=== PATIENT | female | born 1965 | race Caucasian/White ===

== ENCOUNTER 2023-02-09 11:47 | Outpatient (REF) | payer OTHER, SELFPAY ==
[2023-02-09 13:05] LABS: MANUAL DIFF FLAG NO
[2023-02-09 13:42] LABS: Basophils Absolute Auto 0.1 X10*3/uL (0.0-0.2); Basophils Percent Auto 0.9 % (0-2); Eosinophils Absolute Auto 0.2 X10*3/uL (0.0-0.4); Eosinophils Percent Auto 2.3 % (0-4); Hemoglobin 13.9 g/dl (12.0-16.0); Imm Gran Abs Auto 0.02 X10*3/uL (0.00-0.03); Imm Gran Pct Auto 0.3 % (0.0-0.4); Lymphocytes Absolute Auto 2.4 X10*3/uL (1.2-4.9); Lymphocytes Percent Auto 30.3 % (20-40); Mean Corpuscular HGB Conc 33.1 g/dl (31.0-35.0); Mean Corpuscular Hemoglobin 29.6 pg (27.0-33.0); Mean Corpuscular Volume 89.6 fL (80.0-98.0); Mean Platelet Volume 10.1 fL (9.4-12.3); Monocytes Absolute Auto 0.8 X10*3/uL (0.1-1.2); Monocytes Percent Auto 9.6 % (2-11); Neutrophils Absolute Auto 4.4 x10*3/uL (2.0-8.3); Neutrophils Percent Auto 56.6 % (45-73); Platelet Count 261 X10*3/uL (160-400); Red Blood Count 4.69 X10*6/uL (4.20-5.50); Red Cell Distribution Width 12.9 % (11.0-16.0); White Blood Count 7.8 X10*3/uL (4.8-10.8)
[2023-02-09 13:52] LABS: Appearance Urine Clear; Color Urine Yellow; Glucose Urine UA Negative (Negative); Leukocyte Esterase Urine Negative (Negative); Nitrite Urine Negative (Negative); PH 5.5 (5.0-9.0); Specific Gravity - Urine 1.025 (1.005-1.025); Urine Blood Negative (Negative); Urine Ketones Negative (Negative); Urine Protein Negative (Neg-Trace)
[2023-02-09 13:58] LABS: Bacteria Urine 1+ (None Seen); Hyaline Casts Urine 0-2 /LPF (0-2); RBC Urine 0-2 /HPF (0-2); WBC Urine 0-5 /HPF (0-5)
[2023-02-09 14:52] LABS: Erythrocyte Sedimentation Rate 17 MM/HR (0-20)
[2023-02-09 15:12] LABS: Creatinine Urine 124.09 mg/dL; Protein/Creatinine Ratio, Ur 0.06 (<0.2); Total Protein Urine Random 8 mg/dL (<12)
[2023-02-09 15:28] LABS: Alanine Aminotransferase 14 U/L (0-31); Albumin Level 4.1 g/dL (3.5-5.0); Alkaline Phosphatase 95 U/L (39-117); Anion Gap 14 (12-20); Aspartate Amino Transferase 16 U/L (5-31); Bilirubin Total 0.5 mg/dL (0.0-1.0); Blood Urea Nitrogen 15 mg/dL (9-16); C Reactive Protein 0.59 mg/dL (< or = 0.50); Calcium 9.5 mg/dL (8.4-10.2); Carbon Dioxide 20 mmol/L (22-29); Chloride 108 mmol/L (96-108); Estimated Glomerular Filt Rate > 60; Glucose Random 93 mg/dL (60-115); Potassium 4.2 mmol/L (3.3-5.1); Rheumatoid Factor < 13.0 IU/mL (<15.0); Sodium 138 mmol/L (135-145); Total Protein 7.7 g/dL (6.5-8.0)
[2023-02-10 04:58] LABS: HBS Num1 34.45 mIU/mL (0-7.99); HBc Num1 0.07 S/CO (0.00-0.79); HBsAGNum1 0.24 S/CO (0.00-0.99); Hepatitis A Antibody IgM 0.18 Index (0-0.79); Hepatitis B Core Antibody Nonreactive (Nonreactive); Hepatitis B Surface Antigen Negative (Negative); ~HepC Num1 0.12 S/CO (0.00-0.79); ~Hepatitis A Antibody IgM Nonreactive (Nonreactive); ~Hepatitis B Surface Antibody REACTIVE (Nonreactive); ~Hepatitis C Antibody Nonreactive (Nonreactive)
[2023-02-11 17:29] LABS: TS Negative Control Passed; TS Panel A 0; TS Panel B 0; TS Positive Control Passed; TSpotTB Negative (Negative)
[2023-02-13 13:23] LABS: IgA 373 mg/dL (47-310); IgG 1717 mg/dL (600-1640); IgM 86 mg/dL (50-300)
[2023-02-13 15:47] LABS: Cyclic Citrullinated Peptide <16 UNITS
[2023-02-13 19:28] LABS: Complement C3 159 mg/dL (83-193)
[2023-02-14 14:49] LABS: Immunoglobulin G Subclass 1 730 mg/dL (382-929); Immunoglobulin G Subclass 2 538 mg/dL (241-700); Immunoglobulin G Subclass 3 64 mg/dL (22-178); Immunoglobulin G Subclass 4 74.9 mg/dL (4-86); Immunoglobulin G Total 1564 mg/dL (600-1640)
[2023-02-14 22:28] LABS: Prot Elec - Albumin 4.2 g/dL (3.8-4.8); Prot Elec - Alpha1 0.3 g/dL (0.2-0.3); Prot Elec - Alpha2 0.7 g/dL (0.5-0.9); Prot Elec - Beta 1 0.5 g/dL (0.4-0.6); Prot Elec - Beta 2 0.5 g/dL (0.2-0.5); Prot Elec - Gamma 1.6 g/dL (0.8-1.7); Prot Elec - Total Protein 7.7 g/dL (6.1-8.1)
[2023-02-14 23:38] LABS: PTT (LAC) Screen 37 sec (<=40)
[2023-02-15 02:39] LABS: Beta-2 Glycoprotein IgA <2.0 U/mL (<20.0); Beta-2 Glycoprotein IgG <2.0 U/mL (<20.0); Beta-2 Glycoprotein IgM <2.0 U/mL (<20.0)
[2023-02-15 13:13] LABS: Cardiolipin IgG Ab <2.0 GPL-U/mL; Cardiolipin IgM Ab <2.0 MPL-U/mL
[2023-02-15 15:24] LABS: Anti Nuclear Antibody Pattern Nuclear, Speckled; Anti Nuclear Antibody Screen POSITIVE (NEGATIVE); Anti Nuclear Antibody Titer 1:40 titer
[2023-02-16 08:54] LABS: Anti DNA DS Antibody <1 IU/mL; Antibody to SS-A Antigen <1.0 NEG AI (<1.0 NEG); Antibody to SS-B Antigen <1.0 NEG AI (<1.0 NEG); Myeloperoxidase Antibody 5.9 AI; Proteinase 3 PR3 Antibodies <1.0 AI; SM/Ribonucleoprotein Ab <1.0 NEG AI (<1.0 NEG); Smith Protein <1.0 NEG AI (<1.0 NEG)
--- NOTE | 2023-02-16 16:28 | MHC.HEMONC ---
Pt called regarding scheduled appointments on February and March 15 2023 at 0800 for Rituximab. Pt states she will call her healthcare provider regarding cost of medication prior to receiving medication on scheduled appointment date. States she will call us back if she will not be able to afford Rituximab and will cancel appointment-states if we do not hear from her she will be here for appointment.
[2023-02-18 15:23] LABS: Lysozyme, Serum 6.3 mcg/mL (5.0-11.0)
[2023-02-21 04:53] LABS: Angiotensin Converting Enzyme 18 U/L (9-67)
--- NOTE | 2024-01-11 16:46 | HO.HEMONCSCH ---
Nurse sched pt to receive x1 order for Rituximab on 01/18/24, pt confirmed 8am arrival, consent was already signed w/ KEV Louis documentation was also included w/ fax. Nurse notified chemo pharmacist by email and faxed tx orders to pharmacy, received fax receipt confirmation.
== END 2023-02-09 11:48 | disposition home or self-care (01) ==
LOC: HO.LAB 11:47
PROVIDERS: Visit Provider Student in an Organized Health Care Education/Training Program
DX: Z11.59 Encounter for screening for other viral diseases (principal); I77.6 Arteritis, unspecified; D68.61 Antiphospholipid syndrome; M32.9 Systemic lupus erythematosus, unspecified; D86.9 Sarcoidosis, unspecified; D89.89 Other specified disorders involving the immune mechanism, not elsewhere classified; M25.541 Pain in joints of right hand; M31.30 Wegener's granulomatosis without renal involvement; Z72.89 Other problems related to lifestyle
CPT/HCPCS: 36415; 80053; 81001; 82164; 82595; 82784; 84156; 84165; 85025; 85549; 85597; 85613; 85652; 85730; 86021; 86038; 86039; 86140; 86146; 86147; 86160; 86200; 86225; 86235; 86334; 86431; 86481; 86704; 86706; 86709; 86803; 87340

== ENCOUNTER 2023-05-16 10:18 | Outpatient (AMB) | payer OTHER, SELFPAY ==
--- NOTE | 2023-05-16 10:19 | A.OFFVIS_ITS ---
Intake Vital Signs 05/16/23 10:20 Height 5 ft 6 in Weight 242 lb 8.136 oz BMI 39.1 BP 128/78 Blood Pressure Location Rt brachial Position Sitting Pulse 89 Pulse Source Pulse Oximeter Temp 97.5 F Temp Source Skin Pulse Oximetry (%) 96 Intake Visit Reasons: Vasculitis Intake Note: Pt seen today for follow up. Reports she's had 2 rituxin infusions since February. Infusions tolerated well, states she feels great except her knees. 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 She completed rituximab infusions 1 g x 2 doses in 03/31. She states that she feels well overall except for bilateral knee pain. The pain in her wrists and ankles have resolved. Denies any new rashes. She states that she has had chronic knee pain for many years. She states that she had knee MRIs many years ago which showed multiple lesions including meniscal tears. She received multiple injections over the years which helped initially then stopped helping. Initial history: This is a 57-year-old female with past medical history of vasculitis who presents for evaluation of vasculitis. Patient stated that she started having multiple joint pains as well as itchy skin rashes back in 2008. The skin rash was biopsied and per patient it was inconclusive. She was evaluated by a home appliance installer Dr. Alan and was started on methotrexate without much improvement. Her skin rashes and joint pains got worse she was ultimately evaluated by home appliance installer Dr. [place] in [place]. She had a repeat skin biopsy which was consistent with vasculitis. She also had a saddle nose. She was diagnosed with MPO positive vasculitis and started on rituximab treatment X 2 doses. She had a couple rounds of rituximab and felt great on it. 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 She had been in remission until December of 2022 when she developed petechial rashes on her extremities as well as joint pain and stiffness of her knees and ankles. She was prescribed a prednisone taper starting at 60 mg taper down to 20 mg in 1 week by her PCP with resolution of her symptoms. Patient also states that she has a hole in the roof of her mouth which is not particularly symptomatic. Today patient feels well. She denies any fevers, joint pain or or skin rashes. [facility] Medical History Granulomatosis with polyangiitis Surgical History [place] teeth extracted Family History Father Bladder cancer Diabetes HTN (hypertension) Myocardial infarct Mother Amyloidosis Social History Alcohol intake: current Alcohol intake frequency: holidays/special occasions only Patient Tobacco Use Status: Former Tobacco user Quit Date: January 2023 e-Cigarette/Vaping Use: Never Used Current occupational status: employed Review of Systems [facility] Reports arthralgias Skin/Breast Denies rash Physical Exam Vital Signs: Last Vital Signs Temp 97.5 F 05/16/23 10:20 Pulse 89 05/16/23 10:20 BP 128/78 05/16/23 10:20 Pulse Ox 96 05/16/23 10:20 BMI result Body Mass Index 39.1 Const General: cooperative, healthy appearing and comfortable Nutritional Appearance: obese morbidly obese Orientation/consciousness: patient oriented x3 Limitations: no limitations HEENT Other: Saddle nose deformity a Hole in the roof of her mouth Head: Yes normocephalic and Yes atraumatic Mouth: moist mucous membranes Resp Effort & Inspection: normal respiratory effort and able to speak in complete sentences Skin General skin exam: no rashes or lesions noted Neuro General: patient oriented x3 Extrem Other: No active synovitis Mild bilateral knee warmth and crepitus without swelling or tenderness Results Reviewed Results Reviewed: Reviewed labs from 2013 and 2012 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 (inflammatory arthritis, skin rashes, saddle nose deformity, sinusitis) Received rituximab in 2012 in 2013 which put her in remission then lost to follow-up flare in 2022 inflammatory arthritis and skin rash (RTX 1 g X2 doses 03/31) effective Code(s): I77.6 - Arteritis, unspecified Plan: This is a 57-year-old female with MPO positive GPA. Patient completed rituximab infusions 03/31. She states that she feels better overall. With improvement of joint pains and skin rashes. Her main complaint is bilateral knee pain due to degenerative arthritis. Will continue to monitor patient clinically and assess the need for further infusions. Patient had to pay $ 1200 out of pocket for infusions. She also had to pay $ 400 for blood work. Will try to be as selective as possible when ordering blood work. Follow-up in 4 months. Will check blood work then (2) Bilateral primary osteoarthritis of knee: Code(s): M17.0 - Bilateral primary osteoarthritis of knee Plan: Advised patient to try Tylenol Arthritis and use [id number] Voltaren gel. There has been no acute change in her symptoms. Will hold off on ordering an x- ray Plan I spent 26 minutes reviewing patient's chart, evaluating patient, counseling patient and documenting in the chart Coding Level of Care Code Est Pt Level 4 (47422) Diagnoses Vasculitis I77.6 Bilateral primary osteoarthritis of knee M17.0
[2023-05-16 10:20] VITALS: BP 128/78; PULSE 89; TEMP 36.4; O2SAT 96; BMI 39.1
== END 2023-05-16 11:02 | disposition home or self-care (01) ==
PROVIDERS: PCP Internal Medicine; Visit Provider Student in an Organized Health Care Education/Training Program
DX: I77.6 Arteritis, unspecified (principal); M17.0 Bilateral primary osteoarthritis of knee
CPT/HCPCS: 99214

== ENCOUNTER → 2023-05-16 10:18 | Outpatient (BNVA) | payer OTHER, SELFPAY | PROVIDERS: PCP Internal Medicine; Visit Provider Student in an Organized Health Care Education/Training Program ==

== ENCOUNTER 2023-09-08 08:13 | Outpatient (REF) | payer OTHER, SELFPAY ==
--- NOTE | ~2023-09-08 | XR_ITS ---
EXAMINATION: Bilateral knee series CLINICAL INFORMATION: Primary osteoarthritis of the knee COMPARISON: None. TECHNIQUE: 4 views of each knee FINDINGS: Right knee: There are marginal osteophytes about all compartments and joint space narrowing in the medial compartment. Is mild genu varus Small joint effusion. Surrounding bone and soft tissues unremarkable. Left knee: There are marginal osteophytes about all compartments and joint space narrowing of the medial compartment. There is mild genu varus small joint effusion XR/XR knee LT 4V IMPRESSION: RIGHT KNEE: Moderate osteoarthritis. Joint effusion LEFT KNEE: Moderate osteoarthritis with small joint effusion.
--- NOTE | ~2023-09-08 | XR_ITS ---
EXAMINATION: Bilateral knee series CLINICAL INFORMATION: Primary osteoarthritis of the knee COMPARISON: None. TECHNIQUE: 4 views of each knee FINDINGS: Right knee: There are marginal osteophytes about all compartments and joint space narrowing in the medial compartment. Is mild genu varus Small joint effusion. Surrounding bone and soft tissues unremarkable. Left knee: There are marginal osteophytes about all compartments and joint space narrowing of the medial compartment. There is mild genu varus small joint effusion XR/XR knee RT 4V IMPRESSION: RIGHT KNEE: Moderate osteoarthritis. Joint effusion LEFT KNEE: Moderate osteoarthritis with small joint effusion.
== END 2023-09-08 08:14 | disposition home or self-care (01) ==
LOC: HO.XRAY 08:13
PROVIDERS: PCP Internal Medicine; Visit Provider Student in an Organized Health Care Education/Training Program
DX: I77.6 Arteritis, unspecified (principal); M17.0 Bilateral primary osteoarthritis of knee
CPT/HCPCS: 73564

== ENCOUNTER 2023-09-08 08:13 | Outpatient (AMB) | payer OTHER, SELFPAY ==
[2023-09-08 08:22] VITALS: BP 118/70; PULSE 80; TEMP 35.9; O2SAT 94; BMI 39.0
--- NOTE | 2023-09-08 08:22 | MHC.OFFVIS ---
Intake Vital Signs 09/08/23 08:22 Height 5 ft 6 in Weight 241 lb 10.026 oz BMI 39.0 BP 118/70 Blood Pressure Location Rt brachial Position Sitting Pulse 80 Pulse Source Pulse Oximeter Temp 96.7 F L Temp Source Skin Pulse Oximetry (%) 94 Oxygen Delivery Method Room Air Intake Visit Reasons: GPA Intake Note: Pt last seen 05/16/23, presents today for follow up. Concerned with weight gain in the last 6 months. Drawing Machine Operator Required: No Accompanied by: Self / Same As Patient Allergies No Known Allergies Allergy (Verified 05/16/23 10:23) Medication List - Last Reconciled 09/08/23 by Ebony Handy MD cholecalciferol (vitamin D3) (Vitamin D3) 50 mcg PO DAILY rituximab-pvvr 1,000 mg intravenously at day 1 & day 15 to be repeated every 6 months sumatriptan succinate 50 mg PO ONCE PRN HPI HPI Comments History of Present Illness Details 58-year-old female with MPO positive GPA returns for follow-up. She completed rituximab infusions 1 g x 2 doses in 03/31. She states that 3 weeks ago she had mild left shoulder pain that self-resolved, few days later she had left toe pain self-resolved. Denies any swollen joints. Denies any fevers or skin rashes. She states that she feels well overall except for bilateral knee pain. She states that she has had chronic knee pain for many years. She states that she had knee MRIs many years ago which showed multiple lesions including meniscal tears. She received multiple injections over the years which helped initially then stopped helping. Initial history: This is a 57-year-old female with past medical history of vasculitis who presents for evaluation of vasculitis. Patient stated that she started having multiple joint pains as well as itchy skin rashes back in 2008. The skin rash was biopsied and per patient it was inconclusive. She was evaluated by a production painter Dr. Alan and was started on methotrexate without much improvement. Her skin rashes and joint pains got worse she was ultimately evaluated by production painter Dr. Adams in [place]. She had a repeat skin biopsy which was consistent with vasculitis. She also had a saddle nose. She was diagnosed with MPO positive vasculitis and started on rituximab treatment X 2 doses. She had a couple rounds of rituximab and felt great on it. 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 She had been in remission until December of 2022 when she developed petechial rashes on her extremities as well as joint pain and stiffness of her knees and ankles. She was prescribed a prednisone taper starting at 60 mg taper down to 20 mg in 1 week by her PCP with resolution of her symptoms. Patient also states that she has a hole in the roof of her mouth which is not particularly symptomatic. Today patient feels well. She denies any fevers, joint pain or or skin rashes. [facility] Medical History Granulomatosis with polyangiitis Surgical History [place] teeth extracted Family History Father Bladder cancer Diabetes HTN (hypertension) Myocardial infarct Mother Amyloidosis Social History Alcohol intake: current Alcohol intake frequency: holidays/special occasions only Patient Tobacco Use Status: Former Tobacco user Quit Date: January 2023 e-Cigarette/Vaping Use: Never Used Current occupational status: employed Review of Systems [place] Reports weight gain Musc Reports arthralgias, Denies joint swelling and Reports stiffness Skin/Breast Denies rash Physical Exam Vital Signs: Last Vital Signs Temp 96.7 F L 09/08/23 08:22 Pulse 80 09/08/23 08:22 BP 118/70 09/08/23 08:22 Pulse Ox 94 09/08/23 08:22 Oxygen Delivery Method Room Air 09/08/23 08:22 BMI result Body Mass Index 39.0 Const General: cooperative, healthy appearing and comfortable Nutritional Appearance: obese morbidly obese Orientation/consciousness: patient oriented x3 Limitations: no limitations HEENT Other: Saddle nose deformity a Hole in the roof of her mouth Head: Yes normocephalic and Yes atraumatic Mouth: moist mucous membranes Resp Effort & Inspection: normal respiratory effort and able to speak in complete sentences Skin General skin exam: no rashes or lesions noted Neuro General: patient oriented x3 Extrem Other: No active synovitis Mild bilateral knee warmth and crepitus without swelling or tenderness Results Reviewed Results Reviewed: Reviewed labs from 2013 and 2012 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 Patient completed rituximab infusions 03/31. She states that she feels better overall. With improvement of joint pains and skin rashes. Her main complaint is bilateral knee pain due to degenerative arthritis. Will continue to monitor patient clinically and assess the need for further infusions. Patient had to pay $ 1200 out of pocket for infusions. She also had to pay $ 400 for blood work. Will try to be as selective as possible when ordering blood work. Follow-up in 3 months (2) Bilateral primary osteoarthritis of knee: Code(s): M17.0 - Bilateral primary osteoarthritis of knee Plan: Advised patient to try Tylenol Arthritis and use [id number] Voltaren gel. Will check bilateral knee x-rays. Will call patient with results, can consider a repeat cortisone injection once, if no relief, can consider gel injections Plan I spent 26 minutes reviewing patient's chart, evaluating patient, counseling patient and documenting in the chart Orders: Orders XR knee LT 3V Today M17.0 - Bilateral primary osteoarthritis of knee XR knee RT 3V Today M17.0 - Bilateral primary osteoarthritis of knee XR knee standing BI Today M17.0 - Bilateral primary osteoarthritis of knee Coding Level of Care Code Est Pt Level 4 (90114) Diagnoses Vasculitis I77.6 Bilateral primary osteoarthritis of knee M17.0
== END 2023-09-08 08:42 | disposition home or self-care (01) ==
PROVIDERS: PCP Internal Medicine; Visit Provider Student in an Organized Health Care Education/Training Program
DX: I77.6 Arteritis, unspecified (principal); M17.0 Bilateral primary osteoarthritis of knee
CPT/HCPCS: 99214

== ENCOUNTER 2023-09-18 09:53 | Outpatient (AMB) | payer OTHER, SELFPAY ==
--- NOTE | 2023-09-18 09:55 | A.OFFVIS_ITS ---
Intake Vital Signs 09/18/23 09:58 Height 5 ft 6 in Weight 240 lb 11.916 oz BMI 38.9 BP 116/78 Blood Pressure Location Rt brachial Position Sitting Pulse 87 Pulse Source Pulse Oximeter Intake Visit Reasons: Knee injection Intake Note: Patient presents today for knee injection. Knee x-rays done. Clinical Care Manager Required: No Accompanied by: Self / Same As Patient Allergies No Known Allergies Allergy (Verified 09/18/23 09:59) Medication List - Last Reconciled 09/18/23 by Ebony Handy MD cholecalciferol (vitamin D3) (Vitamin D3) 50 mcg PO DAILY rituximab-pvvr 1,000 mg intravenously at day 1 & day 15 to be repeated every 6 months sumatriptan succinate 50 mg PO ONCE PRN HPI HPI Comments History of Present Illness Details 58-year-old female with MPO positive GPA returns for follow-up. She is here for bilateral knee cortisone injections. Initial history: This is a 57-year-old female with past medical history of vasculitis who presents for evaluation of vasculitis. Patient stated that she started having multiple joint pains as well as itchy skin rashes back in 2008. The skin rash was biopsied and per patient it was inconclusive. She was evaluated by a air operations manager Dr. Alan and was started on methotrexate without much improvement. Her skin rashes and joint pains got worse she was ultimately evaluated by air operations manager Dr. Adams in [place]. She had a repeat skin biopsy which was consistent with vasculitis. She also had a saddle nose. She was diagnosed with MPO positive vasculitis and started on rituximab treatment X 2 doses. She had a couple rounds of rituximab and felt great on it. 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 She had been in remission until December of 2022 when she developed petechial rashes on her extremities as well as joint pain and stiffness of her knees and ankles. She was prescribed a prednisone taper starting at 60 mg taper down to 20 mg in 1 week by her PCP with resolution of her symptoms. Patient also states that she has a hole in the roof of her mouth which is not particularly symptomatic. Today patient feels well. She denies any fevers, joint pain or or skin rashes. [facility] Medical History Granulomatosis with polyangiitis Surgical History [place] teeth extracted Family History Father Bladder cancer Diabetes HTN (hypertension) Myocardial infarct Mother Amyloidosis Social History Alcohol intake: current Alcohol intake frequency: holidays/special occasions only Patient Tobacco Use Status: Former Tobacco user Quit Date: January 2023 e-Cigarette/Vaping Use: Never Used Current occupational status: employed Review of Systems [facility] Reports arthralgias and Reports stiffness Physical Exam Vital Signs: Last Vital Signs Pulse 87 09/18/23 09:58 BP 116/78 09/18/23 09:58 BMI result Body Mass Index 38.9 Const General: cooperative, healthy appearing and comfortable Nutritional Appearance: obese morbidly obese Orientation/consciousness: patient oriented x3 Limitations: no limitations HEENT Other: Saddle nose deformity a Hole in the roof of her mouth Head: Yes normocephalic and Yes atraumatic Resp Effort & Inspection: normal respiratory effort and able to speak in complete sentences Neuro General: patient oriented x3 Extrem Other: No active synovitis Mild bilateral knee warmth and crepitus without swelling or tenderness Office Procedures Joint Injection/Drain Joint Injection/Drain Primary Site: right knee Secondary Site: left knee Prep: site was prepped using sterile technique and ethochloride spray was applied Injected: 40 mg of, Kenalog and other (2 mL of 1% lidocaine) Approach Used: medial parapatellar Procedure: The patient tolerated the procedure well Coding Details: With the patient's consent the right knee was prepped with ChloraPrep and alcohol. The skin was anesthetized with 2 cc of 1% lidocaine. The knee was then injected with 40 mg of triamcinolone and 1 cc of I % lidocaine. The patient tolerated the procedure with no immediate adverse effects. With the patient's consent the left knee was prepped with ChloraPrep and alcohol. The skin was anesthetized with 2 cc of 1% lidocaine. The knee was then injected with 40 mg of triamcinolone and 1 cc of I % lidocaine. The patient tolerated the procedure with no immediate adverse effects. 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 She tried using Tylenol Arthritis and Voltaren gel without relief. Ten years ago patient received steroid and gel injections without significant relief. We will attempt another steroid injection trial. With patient's consent, both knees were injected with Kenalog today. If helpful they can be repeated every 3-4 months, if not helpful, gel injections to be considered Plan I spent 16 minutes reviewing patient's chart, evaluating patient, counseling patient and documenting in the chart Orders: Orders AMB Joint Injection/Aspiration Today M17.0 - Bilateral primary osteoarthritis of knee Coding Level of Care Code Est Pt Level 3 (63440) Diagnoses Bilateral primary osteoarthritis of knee M17.0 CPT Codes Coding - 91898 Large joint: 05360 - Large joint ([id number])
[2023-09-18 09:58] VITALS: BP 116/78; PULSE 87; BMI 38.9
== END 2023-09-18 10:24 | disposition home or self-care (01) ==
PROVIDERS: PCP Internal Medicine; Visit Provider Student in an Organized Health Care Education/Training Program
DX: M17.0 Bilateral primary osteoarthritis of knee (principal)
CPT/HCPCS: 20610; 99213

== ENCOUNTER → 2023-09-18 09:53 | Outpatient (BNVA) | payer OTHER, SELFPAY | PROVIDERS: PCP Internal Medicine; Visit Provider Student in an Organized Health Care Education/Training Program | DX: M17.0 Bilateral primary osteoarthritis of knee (principal) | CPT/HCPCS: 20610; J3301 ==

== ENCOUNTER 2023-12-25 07:49 | Outpatient (REF) | payer OTHER, SELFPAY ==
[2023-12-27 20:49] LABS: Prot Elec - Albumin 3.9 g/dL (3.8-4.8); Prot Elec - Alpha1 0.3 g/dL (0.2-0.3); Prot Elec - Alpha2 0.7 g/dL (0.5-0.9); Prot Elec - Beta 1 0.5 g/dL (0.4-0.6); Prot Elec - Beta 2 0.6 g/dL (0.2-0.5); Prot Elec - Gamma 1.4 g/dL (0.8-1.7); Prot Elec - Total Protein 7.4 g/dL (6.1-8.1)
[2023-12-28 09:14] LABS: IgA 355 mg/dL (47-310); IgG 1572 mg/dL (600-1640); IgM 66 mg/dL (50-300)
== END 2023-12-25 07:50 | disposition home or self-care (01) ==
LOC: HO.LAB 07:49
PROVIDERS: Visit Provider Student in an Organized Health Care Education/Training Program
DX: I77.6 Arteritis, unspecified (principal)
CPT/HCPCS: 36415; 82784; 84165; 86334

== ENCOUNTER 2023-12-27 09:57 | Outpatient (AMB) | payer OTHER, SELFPAY ==
--- NOTE | 2023-12-27 10:07 | MHC.OFFVIS ---
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 Reports robin knee pain, states last cortisone injection lasted until monday. 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 Patient called our clinic last month due to a dry cough, some sinus pain and generalized, not feeling well, she contacted our clinic and blood work was ordered, she was evaluated by her PCP and was told that she likely has a viral infection, she was prescribed a cough suppressant with resolution of her symptoms, last Monday she started feeling that the steroid injections have not working well. She has been having bilateral knee pain, left lower back pain and left foot pain. She does not believe she has any swollen joints. No rashes no fevers no sinus congestion. She has been snoring a little bit more loud they. She has been a little restless Initial history: This is a 57-year-old female with past medical history of vasculitis who presents for evaluation of vasculitis. Patient stated that she started having multiple joint pains as well as itchy skin rashes back in 2008. The skin rash was biopsied and per patient it was inconclusive. She was evaluated by a diabetic educator Dr. Alan and was started on methotrexate without much improvement. Her skin rashes and joint pains got worse she was ultimately evaluated by diabetic educator Dr. Adams in [place]. She had a repeat skin biopsy which was consistent with vasculitis. She also had a saddle nose. She was diagnosed with MPO positive vasculitis and started on rituximab treatment X 2 doses. She had a couple rounds of rituximab and felt great on it. 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 She had been in remission until December of 2022 when she developed petechial rashes on her extremities as well as joint pain and stiffness of her knees and ankles. She was prescribed a prednisone taper starting at 60 mg taper down to 20 mg in 1 week by her PCP with resolution of her symptoms. Patient also states that she has a hole in the roof of her mouth which is not particularly symptomatic. Today patient feels well. She denies any fevers, joint pain or or skin rashes. [facility] Medical History Respiratory symptoms History of vasculitis Granulomatosis with polyangiitis Surgical History [place] teeth extracted Family History Father Bladder cancer Diabetes HTN (hypertension) Myocardial infarct Mother Amyloidosis Social History Alcohol intake: current Alcohol intake frequency: holidays/special occasions only Patient Tobacco Use Status: Former Tobacco user Quit Date: January 2023 e-Cigarette/Vaping Use: Never Used Current occupational status: employed Review of Systems [facility] Reports arthralgias and Reports stiffness Skin/Breast Denies rash Psych Details: Restless Physical Exam Vital Signs: Last Vital Signs Temp 98.2 F 12/27/23 10:08 Pulse 56 12/27/23 10:08 BP 100/60 12/27/23 10:08 Pulse Ox 93 12/27/23 10:08 Oxygen Delivery Method Room Air 12/27/23 10:08 BMI result Body Mass Index 38.9 Const General: cooperative, healthy appearing and comfortable Nutritional Appearance: obese morbidly obese Orientation/consciousness: patient oriented x3 Limitations: no limitations HEENT Other: Saddle nose deformity a Hole in the roof of her mouth No sinus tenderness No oral ulcers Head: Yes normocephalic and Yes atraumatic Resp Effort & Inspection: normal respiratory effort and able to speak in complete sentences Auscultation: clear to auscultation bilaterally Cardio Rate: regular rate Rhythm: regular rhythm Skin General skin exam: no rashes or lesions noted Neuro General: patient oriented x3 Extrem Other: No active synovitis Mild bilateral knee warmth and crepitus without swelling or tenderness Results Reviewed Results Reviewed: Reviewed labs from 2013 and 2012 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 Patient completed rituximab infusions 03/31. Last month patient was having cough, eye pain, she was evaluated by her PCP and prescribed a cough suppressant with resolution of her symptoms. She has been having more joint pains especially of her knees for a few days. He feels that he steroid injection effect has worn out. Will check labs to evaluate disease activity. Will call patient with results (2) Bilateral primary osteoarthritis of knee: Code(s): M17.0 - Bilateral primary osteoarthritis of knee Plan: Cortisone injections done 09/2023 were quite effective for about 3 months. Patient to come back to clinic in 2-3 weeks for repeat injections Plan I spent 26 minutes reviewing patient's chart, evaluating patient, ordering diagnostic workup, counseling patient and documenting in the chart Orders: Orders ANCA Vasculitides Today I77.6 - Arteritis, unspecified, R09.89 - Other specified symptoms and signs involving the circulatory and respiratory systems, Z86.79 - Personal history of other diseases of the circulatory system Complete Blood Count Auto Diff Today I77.6 - Arteritis, unspecified, R09.89 - Other specified symptoms and signs involving the circulatory and respiratory systems, Z86.79 - Personal history of other diseases of the circulatory system Proteinase 3 PR3 Antibodies Today I77.6 - Arteritis, unspecified, R09.89 - Other specified symptoms and signs involving the circulatory and respiratory systems, Z86.79 - Personal history of other diseases of the circulatory system C Reactive Protein Today I77.6 - Arteritis, unspecified, R09.89 - Other specified symptoms and signs involving the circulatory and respiratory systems, Z86.79 - Personal history of other diseases of the circulatory system Comprehensive Met. Panel Today I77.6 - Arteritis, unspecified, R09.89 - Other specified symptoms and signs involving the circulatory and respiratory systems, Z86.79 - Personal history of other diseases of the circulatory system Erythrocyte Sedimentation Rate Today I77.6 - Arteritis, unspecified, R09.89 - Other specified symptoms and signs involving the circulatory and respiratory systems, Z86.79 - Personal history of other diseases of the circulatory system Myeloperoxidase Antibody Today I77.6 - Arteritis, unspecified, R09.89 - Other specified symptoms and signs involving the circulatory and respiratory systems, Z86.79 - Personal history of other diseases of the circulatory system Coding Level of Care Code Est Pt Level 4 (64741) Diagnoses Vasculitis I77.6 Bilateral primary osteoarthritis of knee M17.0
[2023-12-27 10:08] VITALS: BP 100/60; PULSE 56; TEMP 36.8; O2SAT 93; BMI 38.9
== END 2023-12-27 10:43 | disposition home or self-care (01) ==
PROVIDERS: PCP Internal Medicine; Visit Provider Student in an Organized Health Care Education/Training Program
DX: I77.6 Arteritis, unspecified (principal); M17.0 Bilateral primary osteoarthritis of knee
CPT/HCPCS: 99214

== ENCOUNTER → 2023-12-27 09:57 | Outpatient (BNVA) | payer OTHER, SELFPAY | PROVIDERS: PCP Internal Medicine; Visit Provider Student in an Organized Health Care Education/Training Program ==

== ENCOUNTER 2023-12-27 10:47 | Outpatient (REF) | payer OTHER, SELFPAY ==
[2023-12-27 13:31] LABS: MANUAL DIFF FLAG NO
[2023-12-27 13:39] LABS: Basophils Absolute Auto 0.1 X10*3/uL (0.0-0.2); Basophils Percent Auto 0.9 % (0-2); Eosinophils Absolute Auto 0.1 X10*3/uL (0.0-0.4); Eosinophils Percent Auto 1.8 % (0-4); Hematocrit 41.3 % (37.0-47.0); Hemoglobin 13.7 g/dl (12.0-16.0); Imm Gran Abs Auto 0.03 X10*3/uL (0.00-0.03); Imm Gran Pct Auto 0.4 % (0.0-0.4); Lymphocytes Absolute Auto 1.8 X10*3/uL (1.2-4.9); Lymphocytes Percent Auto 23.8 % (20-40); Mean Corpuscular HGB Conc 33.2 g/dl (31.0-35.0); Mean Corpuscular Hemoglobin 30.9 pg (27.0-33.0); Mean Platelet Volume 10.4 fL (9.4-12.3); Monocytes Absolute Auto 0.7 X10*3/uL (0.1-1.2); Monocytes Percent Auto 9.5 % (2-11); Neutrophils Absolute Auto 4.8 x10*3/uL (2.0-8.3); Neutrophils Percent Auto 63.6 % (45-73); Platelet Count 270 X10*3/uL (160-400); Red Blood Count 4.44 X10*6/uL (4.20-5.50); Red Cell Distribution Width 13.2 % (11.0-16.0); White Blood Count 7.6 X10*3/uL (4.8-10.8)
[2023-12-27 13:52] LABS: Alanine Aminotransferase 36 U/L (0-31); Albumin Level 4.1 g/dL (3.5-5.0); Alkaline Phosphatase 83 U/L (39-117); Anion Gap 10 (12-20); Aspartate Amino Transferase 34 U/L (5-31); Bilirubin Total 0.4 mg/dL (0.0-1.0); Blood Urea Nitrogen 12 mg/dL (9-16); C Reactive Protein 0.96 mg/dL (< or = 0.50); Calcium 9.7 mg/dL (8.4-10.2); Carbon Dioxide 27 mmol/L (22-29); Chloride 106 mmol/L (96-108); Estimated Glomerular Filt Rate > 60; Glucose Random 97 mg/dL (60-115); Sodium 139 mmol/L (135-145); Total Protein 8.1 g/dL (6.5-8.0)
[2023-12-27 14:22] LABS: Erythrocyte Sedimentation Rate 25 MM/HR (0-20)
[2024-01-08 09:53] LABS: Myeloperoxidase Antibody 5.7 AI; Proteinase 3 PR3 Antibodies <1.0 AI
== END 2023-12-27 10:48 | disposition home or self-care (01) ==
LOC: HO.10HDL 10:47
PROVIDERS: Visit Provider Student in an Organized Health Care Education/Training Program
DX: I77.6 Arteritis, unspecified (principal); R09.89 Other specified symptoms and signs involving the circulatory and respiratory systems; Z86.79 Personal history of other diseases of the circulatory system
CPT/HCPCS: 36415; 80053; 85025; 85652; 86021; 86140

== ENCOUNTER 2024-01-10 11:34 | Outpatient (AMB) | payer OTHER, SELFPAY ==
[2024-01-10 11:41] VITALS: BP 108/60; PULSE 94; O2SAT 95; BMI 39.3
--- NOTE | 2024-01-10 11:41 | MHC.OFFVIS ---
Intake Vital Signs 01/10/24 11:41 Height 5 ft 6 in Weight 243 lb 9.773 oz BMI 39.3 BP 108/60 Blood Pressure Location Rt brachial Position Sitting Pulse 94 Pulse Source Pulse Oximeter Pulse Oximetry (%) 95 Oxygen Delivery Method Room Air Intake Visit Reasons: vasculitis/inj Intake Note: Patient last seen 12/27/23 presents today for follow up and bl knee injections. She also reports rash and is hoping to get infusion soon. 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 She is here for bilateral knee cortisone injection for her knee osteoarthritis. She stated that she noticed a rash that popped up on her left pope yesterday. It is not itchy, no other rashes noticed. Denies any chest pain, fevers, shortness of breath. Continues to feel a little restless Initial history: This is a 57-year-old female with past medical history of vasculitis who presents for evaluation of vasculitis. Patient stated that she started having multiple joint pains as well as itchy skin rashes back in 2008. The skin rash was biopsied and per patient it was inconclusive. She was evaluated by a colored liquid plastic applier Dr. Alan and was started on methotrexate without much improvement. Her skin rashes and joint pains got worse she was ultimately evaluated by colored liquid plastic applier Dr. Adams in [place]. She had a repeat skin biopsy which was consistent with vasculitis. She also had a saddle nose. She was diagnosed with MPO positive vasculitis and started on rituximab treatment X 2 doses. She had a couple rounds of rituximab and felt great on it. 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 She had been in remission until December of 2022 when she developed petechial rashes on her extremities as well as joint pain and stiffness of her knees and ankles. She was prescribed a prednisone taper starting at 60 mg taper down to 20 mg in 1 week by her PCP with resolution of her symptoms. Patient also states that she has a hole in the roof of her mouth which is not particularly symptomatic. Today patient feels well. She denies any fevers, joint pain or or skin rashes. [facility] Medical History Respiratory symptoms History of vasculitis Granulomatosis with polyangiitis Surgical History [place] teeth extracted Family History Father Bladder cancer Diabetes HTN (hypertension) Myocardial infarct Mother Amyloidosis Social History Alcohol intake: current Alcohol intake frequency: holidays/special occasions only Patient Tobacco Use Status: Former Tobacco user Quit Date: January 2023 e-Cigarette/Vaping Use: Never Used Current occupational status: employed Review of Systems [employer] Reports arthralgias and Reports stiffness Skin/Breast Reports rash Psych Details: Restless Physical Exam Vital Signs: Last Vital Signs Pulse 94 01/10/24 11:41 BP 108/60 01/10/24 11:41 Pulse Ox 95 01/10/24 11:41 Oxygen Delivery Method Room Air 01/10/24 11:41 BMI result Body Mass Index 39.3 Const General: cooperative, healthy appearing and comfortable Nutritional Appearance: obese morbidly obese Orientation/consciousness: patient oriented x3 Limitations: no limitations HEENT Other: Saddle nose deformity a Hole in the roof of her mouth No sinus tenderness No oral ulcers Head: Yes normocephalic and Yes atraumatic Resp Effort & Inspection: normal respiratory effort and able to speak in complete sentences Skin Other: Neuro General: patient oriented x3 Extrem Other: No active synovitis Mild bilateral knee warmth and crepitus without swelling or tenderness Office Procedures Joint Injection/Drain Joint Injection/Drain Primary Site: right knee Secondary Site: left knee Prep: site was prepped using sterile technique and ethochloride spray was applied Injected: 40 mg of, Kenalog and other (2 mL of 1% lidocaine) Approach Used: medial parapatellar Procedure: The patient tolerated the procedure well Coding Details: With the patient's consent the right knee was prepped with ChloraPrep and alcohol. The skin was anesthetized with 2 cc of 1% lidocaine. The knee was then injected with 40 mg of triamcinolone and 2 cc of I % lidocaine. The patient tolerated the procedure with no immediate adverse effects. With the patient's consent the left knee was prepped with ChloraPrep and alcohol. The skin was anesthetized with 2 cc of 1% lidocaine. The knee was then injected with 40 mg of triamcinolone and 2 cc of I % lidocaine. The patient tolerated the procedure with no immediate adverse effects. 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 Patient completed rituximab infusions 03/31. Over the last month patient has been having symptoms suggestive of a recurrence including increased restlessness, rashes, worsening knee pain. Labs showed elevated inflammatory markers. Patient needs another rituximab infusion. Rituximab was authorized, patient will be scheduled, will plan to give 1 g rituximab. Follow-up in 2 months (2) Bilateral primary osteoarthritis of knee: Code(s): M17.0 - Bilateral primary osteoarthritis of knee Plan: Cortisone injections done 09/2023 were quite effective for about 3 months. Knee pain recurring. With patient's consent, both knees were injected with Kenalog today Plan I spent 26 minutes reviewing patient's chart, evaluating patient, counseling patient and documenting in the chart Orders: Orders AMB Joint Injection/Aspiration Today M17.0 - Bilateral primary osteoarthritis of knee Coding Level of Care Code Est Pt Level 4 (37553) Diagnoses Vasculitis I77.6 Bilateral primary osteoarthritis of knee M17.0 CPT Codes Coding - Large joint: 87492 - Large joint ([id number])
== END 2024-01-10 12:21 | disposition home or self-care (01) ==
PROVIDERS: PCP Internal Medicine; Visit Provider Student in an Organized Health Care Education/Training Program
DX: I77.6 Arteritis, unspecified (principal); M17.0 Bilateral primary osteoarthritis of knee
CPT/HCPCS: 20610; 99213

== ENCOUNTER → 2024-01-10 11:34 | Outpatient (BNVA) | payer OTHER, SELFPAY | PROVIDERS: PCP Internal Medicine; Visit Provider Student in an Organized Health Care Education/Training Program | DX: I77.6 Arteritis, unspecified (principal); M17.0 Bilateral primary osteoarthritis of knee | CPT/HCPCS: 20610; J3301 ==

== ENCOUNTER 2024-03-12 10:15 | Outpatient (AMB) | payer OTHER, SELFPAY ==
--- NOTE | 2024-03-12 10:20 | MHC.OFFVIS ---
Vital Signs 03/12/24 10:25 Height 5 ft 6 in Weight 242 lb 1.081 oz BMI 39.1 BP 128/76 Blood Pressure Location Rt brachial Position Sitting Intake Visit Reasons: vasculitis Intake Note: Pt reports bl knee pain/throbbing since Monday. 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 She states that she has been doing reasonably well overall. Symptoms of restlessness have resolved after rituximab infusion. Her knees were doing well after the injection until about days ago when she started noticing swelling behind her right knee as well as bilateral lower extremity swelling more noticeable on the right. He states that in the past she was told that she has fluid buildup in her legs and she needs to use compression stockings but she could not tolerate them Initial history: This is a 57-year-old female with past medical history of vasculitis who presents for evaluation of vasculitis. Patient stated that she started having multiple joint pains as well as itchy skin rashes back in 2008. The skin rash was biopsied and per patient it was inconclusive. She was evaluated by a western philosophy professor Dr. Alan and was started on methotrexate without much improvement. Her skin rashes and joint pains got worse she was ultimately evaluated by western philosophy professor Dr. Adams in [place]. She had a repeat skin biopsy which was consistent with vasculitis. She also had a saddle nose. She was diagnosed with MPO positive vasculitis and started on rituximab treatment X 2 doses. She had a couple rounds of rituximab and felt great on it. 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 She had been in remission until December of 2022 when she developed petechial rashes on her extremities as well as joint pain and stiffness of her knees and ankles. She was prescribed a prednisone taper starting at 60 mg taper down to 20 mg in 1 week by her PCP with resolution of her symptoms. Patient also states that she has a hole in the roof of her mouth which is not particularly symptomatic. Today patient feels well. She denies any fevers, joint pain or or skin rashes. [facility] Medical History Respiratory symptoms Surgical History [place] teeth extracted Family History Father Bladder cancer Diabetes HTN (hypertension) Myocardial infarct Mother Amyloidosis Social History Alcohol intake: current Alcohol intake frequency: holidays/special occasions only Patient Tobacco Use Status: Former Tobacco user e-Cigarette/Vaping Use: Never Used Current occupational status: employed Review of Systems ENT Denies sinus pain, Denies sinus pressure and Denies sore throat Card Denies dyspnea on exertion Resp Denies cough and Denies dyspnea on exertion Musc Reports arthralgias and Reports joint swelling Physical Exam Vital Signs: Last Vital Signs BP 128/76 03/12/24 10:25 BMI result Body Mass Index 39.1 Const General: cooperative, healthy appearing and comfortable Nutritional Appearance: obese morbidly obese Orientation/consciousness: patient oriented x3 Limitations: no limitations HEENT Other: Saddle nose deformity a Hole in the roof of her mouth No sinus tenderness No oral ulcers Head: Yes normocephalic and Yes atraumatic Resp Effort & Inspection: normal respiratory effort and able to speak in complete sentences Neuro General: patient oriented x3 Extrem Other: Right knee warmth and pain with flexion-extension Bilateral lower limb pitting edema but more noticeable on the right Negative Homans sign bilaterally Results Reviewed Results Reviewed: Reviewed labs from 2013 and 2012 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 She completed rituximab infusion 2 months ago, infusion was uneventful. There are no symptoms suggestive of vasculitis today. However given recurrence I think patient will need maintenance dose. Plan to repeat rituximab maintenance dose q.6 months Labs before next visit in 3 months. We will arrange for rituximab infusion then (2) Bilateral primary osteoarthritis of knee: Code(s): M17.0 - Bilateral primary osteoarthritis of knee Category: Medical Plan: Cortisone injections done 09/2023 were quite effective for about 3 months. Both knees injected again 01/2023 effective (3) Right leg swelling: Code(s): M79.89 - Other specified soft tissue disorders Category: Medical Plan: Likely Villar cyst however would like to rule out DVT. Will order bilateral lower extremity venous duplex Plan I spent 26 minutes reviewing patient's chart, evaluating patient, ordering diagnostic workup, counseling patient and documenting in the chart Orders: Orders US venous duplex LE BI Today M79.89 - Other specified soft tissue disorders Complete Blood Count Auto Diff 3 Months I77.6 - Arteritis, unspecified Comprehensive Met. Panel 3 Months I77.6 - Arteritis, unspecified C Reactive Protein 3 Months I77.6 - Arteritis, unspecified Erythrocyte Sedimentation Rate 3 Months I77.6 - Arteritis, unspecified Coding Level of Care Code Est Pt Level 4 (10577) Diagnoses Vasculitis I77.6 Bilateral primary osteoarthritis of knee M17.0 Right leg swelling M79.89
[2024-03-12 10:25] VITALS: BP 128/76; BMI 39.1
== END 2024-03-12 10:46 | disposition home or self-care (01) ==
PROVIDERS: PCP Internal Medicine; Referring Provider Internal Medicine; Visit Provider Student in an Organized Health Care Education/Training Program
DX: I77.6 Arteritis, unspecified (principal); M17.0 Bilateral primary osteoarthritis of knee; M79.89 Other specified soft tissue disorders
CPT/HCPCS: 99214

== ENCOUNTER 2024-03-12 10:15 | Outpatient (REF) | payer OTHER, SELFPAY ==
--- NOTE | ~2024-03-12 | US_ITS ---
EXAMINATION: US VENOUS ULTRASOUND WITH DOPPLER LOWER EXTREMITY, BILATERAL CLINICAL INFORMATION: Right lower extremity swelling Vasculitis. COMPARISON: None available. TECHNIQUE: Ultrasound of the deep veins is performed from the hip to the calf with compression sonography and color and pulse Doppler assessment. Spectral analysis with color-flow imaging is performed. FINDINGS: RIGHT: There is normal venous compression and respiratory variation and augmented flow. The visualized common femoral vein, superficial femoral vein, profunda femoral vein, popliteal vein, and the posterior tibial and peroneal veins shows no evidence of deep venous thrombosis. Right calf edema is seen. LEFT: There is normal venous compression and respiratory variation and augmented flow. The visualized common femoral vein, superficial femoral vein, profunda femoral vein, popliteal vein, and the posterior tibial and peroneal veins shows no evidence of deep venous thrombosis. Left calf edema is seen. US/US venous duplex LE BI IMPRESSION: No DVT demonstrated in the right or left lower extremity. Bilateral calf edema.
--- NOTE | ~2024-03-12 | XR_ITS ---
EXAMINATION: XR KNEE AP STANDING CLINICAL INFORMATION: Bilateral primary osteoarthritis of knee COMPARISON: Right knee 09/08/2023 Left knee 09/08/2023 TECHNIQUE: AP bilateral standing view of the knees was obtained. FINDINGS: Right knee: There is marked joint space narrowing of the medial joint compartment. Marginal osteophytes involve the medial and lateral joint compartment. There is moderate genu varus. Left knee: There is marked narrowing of the medial joint compartment with marginal osteophytes involving the medial and lateral joint compartments. There is moderate degenerative varus. XR/XR knee standing BI IMPRESSION: Bilateral marked osteoarthritis involving the medial joint compartments.
== END 2024-03-12 10:16 | disposition home or self-care (01) ==
LOC: HO.US 10:15
PROVIDERS: PCP Internal Medicine; Visit Provider Student in an Organized Health Care Education/Training Program
DX: M17.0 Bilateral primary osteoarthritis of knee (principal); R60.0 Localized edema
CPT/HCPCS: 73565; 93970

== ENCOUNTER 2024-06-03 08:06 | Outpatient (REF) | payer OTHER, SELFPAY ==
[2024-06-03 10:31] LABS: MANUAL DIFF FLAG NO
[2024-06-03 10:34] LABS: Basophils Absolute Auto 0.1 X10*3/uL (0.0-0.2); Basophils Percent Auto 1.4 % (0-2); Eosinophils Absolute Auto 0.2 X10*3/uL (0.0-0.4); Eosinophils Percent Auto 3.7 % (0-4); Hematocrit 40.2 % (37.0-47.0); Hemoglobin 13.4 g/dl (12.0-16.0); Imm Gran Abs Auto 0.01 X10*3/uL (0.00-0.03); Imm Gran Pct Auto 0.2 % (0.0-0.4); Lymphocytes Absolute Auto 1.7 X10*3/uL (1.2-4.9); Lymphocytes Percent Auto 29.3 % (20-40); Mean Corpuscular HGB Conc 33.3 g/dl (31.0-35.0); Mean Corpuscular Hemoglobin 31.2 pg (27.0-33.0); Mean Corpuscular Volume 93.5 fL (80.0-98.0); Mean Platelet Volume 10.6 fL (9.4-12.3); Monocytes Absolute Auto 0.6 X10*3/uL (0.1-1.2); Monocytes Percent Auto 10.7 % (2-11); Neutrophils Absolute Auto 3.2 x10*3/uL (2.0-8.3); Neutrophils Percent Auto 54.7 % (45-73); Platelet Count 251 X10*3/uL (160-400); Red Cell Distribution Width 12.8 % (11.0-16.0); White Blood Count 5.9 X10*3/uL (4.8-10.8)
[2024-06-03 11:06] LABS: Alanine Aminotransferase 16 U/L (0-31); Albumin Level 3.9 g/dL (3.5-5.0); Alkaline Phosphatase 82 U/L (39-117); Anion Gap 12 (12-20); Aspartate Amino Transferase 16 U/L (5-31); Bilirubin Total 0.4 mg/dL (0.0-1.0); Blood Urea Nitrogen 11 mg/dL (9-16); C Reactive Protein 0.65 mg/dL (< or = 0.50); Carbon Dioxide 24 mmol/L (22-29); Chloride 108 mmol/L (96-108); Estimated Glomerular Filt Rate > 60; Glucose Random 108 mg/dL (60-115); Sodium 140 mmol/L (135-145); Total Protein 7.2 g/dL (6.5-8.0)
[2024-06-03 11:07] LABS: Erythrocyte Sedimentation Rate 13 MM/HR (0-20)
== END 2024-06-03 08:07 | disposition home or self-care (01) ==
LOC: HO.10HDL 08:06
PROVIDERS: Visit Provider Student in an Organized Health Care Education/Training Program
DX: I77.6 Arteritis, unspecified (principal)
CPT/HCPCS: 36415; 80053; 85025; 85652; 86140

== ENCOUNTER 2024-06-19 10:34 | Outpatient (AMB) | payer OTHER, SELFPAY ==
[2024-06-19 10:35] VITALS: BP 130/80; PULSE 81; O2SAT 99; BMI 39.6
--- NOTE | 2024-06-19 10:35 | MHC.OFFVIS ---
Vital Signs 06/19/24 10:35 Height 5 ft 6 in Weight 245 lb 9.519 oz BMI 39.6 BP 130/80 Blood Pressure Location Lt brachial Position Sitting Pulse 81 Pulse Source Pulse Oximeter Pulse Oximetry (%) 99 Oxygen Delivery Method Room Air Intake Visit Reasons: vasculitis Intake Note: Patient presents today for follow up on vasculitis today, with labs review. 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 She states that she has been doing well overall. No sinonasal symptoms. No rashes. No fevers. Her main complaint is bilateral knee pain, worse on the right. The last knee injection was 01/2024. She feels that the injection lasts 2-3 months. Initial history: This is a 57-year-old female with past medical history of vasculitis who presents for evaluation of vasculitis. Patient stated that she started having multiple joint pains as well as itchy skin rashes back in 2008. The skin rash was biopsied and per patient it was inconclusive. She was evaluated by a windows migration technician Dr. Alan and was started on methotrexate without much improvement. Her skin rashes and joint pains got worse she was ultimately evaluated by windows migration technician Dr. Adams in [place]. She had a repeat skin biopsy which was consistent with vasculitis. She also had a saddle nose. She was diagnosed with MPO positive vasculitis and started on rituximab treatment X 2 doses. She had a couple rounds of rituximab and felt great on it. 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 She had been in remission until December of 2022 when she developed petechial rashes on her extremities as well as joint pain and stiffness of her knees and ankles. She was prescribed a prednisone taper starting at 60 mg taper down to 20 mg in 1 week by her PCP with resolution of her symptoms. Patient also states that she has a hole in the roof of her mouth which is not particularly symptomatic. Today patient feels well. She denies any fevers, joint pain or or skin rashes. [facility] Medical History (Updated 06/19/24 @ 11:19 by Renae Stewart [facility]) Respiratory symptoms Vasculitis Prediabetes Surgical History [place] teeth extracted Family History Father Bladder cancer Diabetes HTN (hypertension) Myocardial infarct Mother Amyloidosis Social History Alcohol intake: current Alcohol intake frequency: holidays/special occasions only Patient Tobacco Use Status: Former Tobacco user e-Cigarette/Vaping Use: Never Used Current occupational status: employed Review of Systems ENT Denies sinus pain, Denies sinus pressure and Denies sore throat Card Denies dyspnea on exertion Resp Denies cough and Denies dyspnea on exertion Musc Reports arthralgias and Reports joint swelling Physical Exam Vital Signs: Last Vital Signs Pulse 81 06/19/24 10:35 BP 130/80 06/19/24 10:35 Pulse Ox 99 06/19/24 10:35 Oxygen Delivery Method Room Air 06/19/24 10:35 BMI result Body Mass Index 39.6 Const General: cooperative, healthy appearing and comfortable Nutritional Appearance: obese morbidly obese Orientation/consciousness: patient oriented x3 Limitations: no limitations HEENT Other: Saddle nose deformity a Hole in the roof of her mouth No sinus tenderness No oral ulcers Head: Yes normocephalic and Yes atraumatic Resp Effort & Inspection: normal respiratory effort and able to speak in complete sentences Neuro General: patient oriented x3 Extrem Other: Right knee warmth and pain with flexion-extension Negative Homans sign bilaterally Results Reviewed Results Reviewed: Reviewed labs from 2013 and 2012 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 Doing very well overall. No signs of active vasculitis. Patient however needs rituximab maintenance therapy We will plan for rituximab infusion next month. 500 mg Follow-up in 4 months (2) Bilateral primary osteoarthritis of knee: Code(s): M17.0 - Bilateral primary osteoarthritis of knee Category: Medical Plan: Cortisone injections done 09/2023 were quite effective for about 3 months. Both knees injected again 01/2023 effective for 2-3 months. She is symptomatic again today. We had discussed gel injections versus cortisone injections in the past. Patient mentions that the injections provided at least 2-3 months relief. At this time I think we should continue with cortisone injections as long as they provide 2-3 months relief. Patient is going to the beach today. She will return to clinic whenever there is an opening for bilateral knee cortisone injections Plan I spent 26 minutes reviewing patient's chart, evaluating patient, counseling patient and documenting in the chart Coding Level of Care Code Est Pt Level 4 (52303) Diagnoses Vasculitis I77.6 Bilateral primary osteoarthritis of knee M17.0
== END 2024-06-19 11:13 | disposition home or self-care (01) ==
PROVIDERS: PCP Internal Medicine; Visit Provider Student in an Organized Health Care Education/Training Program
DX: I77.6 Arteritis, unspecified (principal); M17.0 Bilateral primary osteoarthritis of knee
CPT/HCPCS: 99214

== ENCOUNTER → 2024-06-19 10:34 | Outpatient (BNVA) | payer OTHER, SELFPAY | PROVIDERS: PCP Internal Medicine; Visit Provider Student in an Organized Health Care Education/Training Program ==

== ENCOUNTER 2024-06-28 13:53 | Outpatient (AMB) | payer OTHER, SELFPAY ==
[2024-06-28 13:56] VITALS: BP 132/62; PULSE 94; O2SAT 96; BMI 39.7
--- NOTE | 2024-06-28 13:56 | A.OFFVIS_ITS ---
Vital Signs 06/28/24 13:56 Height 5 ft 6 in Weight 245 lb 13.047 oz BMI 39.7 BP 132/62 Blood Pressure Location Lt brachial Position Sitting Pulse 94 Pulse Source Pulse Oximeter Pulse Oximetry (%) 96 Oxygen Delivery Method Room Air Intake Visit Reasons: Vasculitis/inj Intake Note: Patient is here for vasculitis and bilateral knee injection Allergies No Known Allergies Allergy (Verified 06/28/24 14:00) Medication List - Last Reconciled 06/28/24 by Ebony Handy MD cholecalciferol (vitamin D3) (Vitamin D3) 50 mcg PO DAILY rituximab-pvvr 1,000 mg intravenously at day 1 & day 15 to be repeated every 6 months sumatriptan succinate 50 mg PO ONCE PRN HPI Comments Details: 59-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 Initial history: This is a 57-year-old female with past medical history of vasculitis who presents for evaluation of vasculitis. Patient stated that she started having multiple joint pains as well as itchy skin rashes back in 2008. The skin rash was biopsied and per patient it was inconclusive. She was evaluated by a accounts payable bookkeeper Dr. Alan and was started on methotrexate witho ut much improvement. Her skin rashes and joint pains got worse she was ultimately evaluated by accounts payable bookkeeper Dr. Adams in [place]. She had a repeat skin biopsy which was consistent with vasculitis. She also had a saddle nose. She was diagnosed with MPO positive vasculitis and started on rituximab treatment X 2 doses. She had a couple rounds of rituximab and felt great on it. 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 She had been in remission until December of 2022 when she developed petechial rashes on her extremities as well as joint pain and stiffness of her knees and ankles. She was prescribed a prednisone taper starting at 60 mg taper down to 20 mg in 1 week by her PCP with resolution of her symptoms. Patient also states that she has a hole in the roof of her mouth which is not particularly symptomatic. Today patient feels well. She denies any fevers, joint pain or or skin rashes. [facility] Medical History Respiratory symptoms Vasculitis Prediabetes Surgical History [place] teeth extracted Family History Father Bladder cancer Diabetes HTN (hypertension) Myocardial infarct Mother Amyloidosis Social History Alcohol intake: current Alcohol intake frequency: holidays/special occasions only Patient Tobacco Use Status: Former Tobacco user e-Cigarette/Vaping Use: Never Used Current occupational status: employed Review of Systems [facility] Reports arthralgias Physical Exam Vital Signs: Last Vital Signs Pulse 94 06/28/24 13:56 BP 132/62 06/28/24 13:56 Pulse Ox 96 06/28/24 13:56 Oxygen Delivery Method Room Air 06/28/24 13:56 BMI result Body Mass Index 39.7 Const General: cooperative, healthy appearing and comfortable Nutritional Appearance: obese morbidly obese Orientation/consciousness: patient oriented x3 Limitations: no limitations HEENT Other: Saddle nose deformity a Hole in the roof of her mouth No sinus tenderness No oral ulcers Head: Yes normocephalic and Yes atraumatic Resp Effort & Inspection: normal respiratory effort and able to speak in complete sentences Neuro General: patient oriented x3 Extrem Other: Right knee warmth and pain with flexion-extension Negative Homans sign bilaterally Office Procedures Joint Injection/Aspiration Joint Injection/Aspiration Primary Site: right knee Secondary Site: left knee Prep: site was prepped using sterile technique and ethochloride spray was applied Injected: 40 mg of, Kenalog, with 1 mL of, 1% plain lidocaine and in the joint Approach Used: medial parapatellar Procedure: The patient tolerated the procedure well Coding Details: With the patient's consent the left knee was prepped with ChloraPrep. The skin was anesthetized with 2 cc of 1% lidocaine. The knee was then injected with 40 mg of triamcinolone and 1 cc of I % lidocaine. Then the right knee was prepped with ChloraPrep. The skin was anesthetized with 2 cc of 1% lidocaine. The knee was then injected with 40 mg of triamcinolone mixed with 1 cc of 1% lidocaine. The patient tolerated both procedures well with no immediate adverse effects. 51146 - Large joint (Large joint x2) Procedure code (CPT) selection complete Assessment & Plan Assessment & Plan (1) Bilateral primary osteoarthritis of knee: Code(s): M17.0 - Bilateral primary osteoarthritis of knee Category: Medical Plan: Cortisone injections done 09/2023 were quite effective for about 3 months. Both knees injected again 01/2023 effective for 2-3 months. . Today both knees were injected with Kenalog. If injections do not help for a reasonable of time, gel injections can be considered in the future Plan I spent 16 minutes reviewing patient's chart, evaluating patient, counseling patient and documenting in the chart Orders: Orders AMB Joint Injection/Aspiration Today M17.0 - Bilateral primary osteoarthritis of knee Coding Level of Care Code Est Pt Level 3 (95345) Diagnoses Bilateral primary osteoarthritis of knee M17.0 CPT Codes Coding - 90655 Large joint: 22975 - Large joint ([id number])
== END 2024-06-28 14:33 | disposition home or self-care (01) ==
PROVIDERS: PCP Internal Medicine; Visit Provider Student in an Organized Health Care Education/Training Program
DX: M17.0 Bilateral primary osteoarthritis of knee (principal)
CPT/HCPCS: 20610; 99213

== ENCOUNTER → 2024-06-28 13:53 | Outpatient (BNVA) | payer OTHER, SELFPAY | PROVIDERS: PCP Internal Medicine; Visit Provider Student in an Organized Health Care Education/Training Program | DX: M17.0 Bilateral primary osteoarthritis of knee (principal) | CPT/HCPCS: 20610; J2003; J3301 ==

== ENCOUNTER 2024-10-16 11:43 | Outpatient (REF) | payer BC, SELFPAY ==
[2024-10-16 12:53] LABS: MANUAL DIFF FLAG NO
[2024-10-16 12:56] LABS: Basophils Absolute Auto 0.1 X10*3/uL (0.0-0.2); Eosinophils Absolute Auto 0.2 X10*3/uL (0.0-0.4); Eosinophils Percent Auto 2.4 % (0-4); Hematocrit 42.8 % (37.0-47.0); Hemoglobin 14.2 g/dl (12.0-16.0); Imm Gran Abs Auto 0.03 X10*3/uL (0.00-0.03); Imm Gran Pct Auto 0.4 % (0.0-0.4); Lymphocytes Percent Auto 25.9 % (20-40); Mean Corpuscular HGB Conc 33.2 g/dl (31.0-35.0); Mean Corpuscular Hemoglobin 30.8 pg (27.0-33.0); Mean Corpuscular Volume 92.8 fL (80.0-98.0); Mean Platelet Volume 10.1 fL (9.4-12.3); Monocytes Absolute Auto 0.8 X10*3/uL (0.1-1.2); Monocytes Percent Auto 10.4 % (2-11); Neutrophils Absolute Auto 4.6 x10*3/uL (2.0-8.3); Neutrophils Percent Auto 59.9 % (45-73); Platelet Count 279 X10*3/uL (160-400); Red Blood Count 4.61 X10*6/uL (4.20-5.50); Red Cell Distribution Width 12.9 % (11.0-16.0); White Blood Count 7.8 X10*3/uL (4.8-10.8)
[2024-10-16 13:10] LABS: Alanine Aminotransferase 24 U/L (0-31); Albumin Level 4.2 g/dL (3.5-5.0); Alkaline Phosphatase 90 U/L (39-117); Anion Gap 13 (12-20); Aspartate Amino Transferase 21 U/L (5-31); Bilirubin Total 0.4 mg/dL (0.0-1.0); Blood Urea Nitrogen 11 mg/dL (9-16); Calcium 9.3 mg/dL (8.4-10.2); Carbon Dioxide 27 mmol/L (22-29); Chloride 106 mmol/L (96-108); Estimated Glomerular Filt Rate > 60; Glucose Random 93 mg/dL (60-115); Sodium 142 mmol/L (135-145)
== END 2024-10-16 11:44 | disposition home or self-care (01) ==
LOC: HO.10HDL 11:43
PROVIDERS: Visit Provider Student in an Organized Health Care Education/Training Program
DX: I77.6 Arteritis, unspecified (principal)
CPT/HCPCS: 36415; 80053; 85025

== ENCOUNTER 2024-10-21 09:51 | Outpatient (AMB) | payer BC, SELFPAY ==
[2024-10-21 09:56] VITALS: BP 130/78; PULSE 74; O2SAT 97; BMI 39.9
--- NOTE | 2024-10-21 09:56 | MHC.OFFVIS ---
Vital Signs 10/21/24 09:56 Height 5 ft 6 in Weight 247 lb 2.211 oz BMI 39.9 BP 130/78 Blood Pressure Location Lt brachial Position Sitting Pulse 74 Pulse Source Pulse Oximeter Pulse Oximetry (%) 97 Oxygen Delivery Method Room Air Intake Visit Reasons: vascullitis Intake Note: Patient last seen by Doctor Ebony Handy on 06/28/24. Presents today for Vasculitis follow up. Patient complains of bilateral knee pain. 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 She states that she has been doing well, her knees did well after the last injection until around [place] time when they started to ache again. She states that last month a water bucket fell on her right pope, she had a bruise in that area followed by erythema and mild swelling and pain. She applied Vaseline with some improvement. Initial history: This is a 57-year-old female with past medical history of vasculitis who presents for evaluation of vasculitis. Patient stated that she started having multiple joint pains as well as itchy skin rashes back in 2008. The skin rash was biopsied and per patient it was inconclusive. She was evaluated by a mattress and foundation sewer Dr. Alan and was started on methotrexate without much improvement. Her skin rashes and joint pains got worse she was ultimately evaluated by mattress and foundation sewer Dr. Adams in [place]. She had a repeat skin biopsy which was consistent with vasculitis. She also had a saddle nose. She was diagnosed with MPO positive vasculitis and started on rituximab treatment X 2 doses. She had a couple rounds of rituximab and felt great on it. 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 She had been in remission until December of 2022 when she developed petechial rashes on her extremities as well as joint pain and stiffness of her knees and ankles. She was prescribed a prednisone taper starting at 60 mg taper down to 20 mg in 1 week by her PCP with resolution of her symptoms. Patient also states that she has a hole in the roof of her mouth which is not particularly symptomatic. Today patient feels well. She denies any fevers, joint pain or or skin rashes. [facility] Medical History Respiratory symptoms Vasculitis Prediabetes Surgical History [place] teeth extracted Family History Father Bladder cancer Diabetes HTN (hypertension) Myocardial infarct Mother Amyloidosis Social History Alcohol intake: current Alcohol intake frequency: holidays/special occasions only Patient Tobacco Use Status: Former Tobacco user e-Cigarette/Vaping Use: Never Used Current occupational status: employed Review of Systems [facility] Reports arthralgias Skin/Breast Reports rash and Reports skin swelling Physical Exam Vital Signs: Last Vital Signs Pulse 74 10/21/24 09:56 BP 130/78 10/21/24 09:56 Pulse Ox 97 10/21/24 09:56 Oxygen Delivery Method Room Air 10/21/24 09:56 BMI result Body Mass Index 39.9 Const General: cooperative, healthy appearing and comfortable Nutritional Appearance: obese morbidly obese Orientation/consciousness: patient oriented x3 Limitations: no limitations HEENT Other: Saddle nose deformity a Hole in the roof of her mouth No sinus tenderness No oral ulcers Head: Yes normocephalic and Yes atraumatic Resp Effort & Inspection: normal respiratory effort and able to speak in complete sentences Skin Other: Very subtle erythema and subtle warmth of right pope , no tenderness Neuro General: patient oriented x3 Extrem Other: Right knee warmth and pain with flexion-extension Negative Homans sign bilaterally Office Procedures AMB Joint Injection/Aspiration Joint Injection/Aspiration Primary Site: right knee Secondary Site: left knee Prep: site was prepped using sterile technique and ethochloride spray was applied Injected: 40 mg of, Kenalog, with 1 mL of, 1% plain lidocaine and in the joint Approach Used: medial parapatellar Procedure: The patient tolerated the procedure well Coding Details: With the patient's consent the left knee was prepped with ChloraPrep and alcohol. The skin was anesthetized with 2 cc of 1% lidocaine. The knee was then injected with 40 mg of triamcinolone and 1 cc of I % lidocaine. Then, the right knee was prepped with ChloraPrep and alcohol. The skin was anesthetized with 2 cc of 1% lidocaine. The knee was then injected with 40 mg of triamcinolone and 1 cc of I % lidocaine. The patient tolerated both procedures well with no apparent immediate adverse events. - Large joint Procedure code (CPT) selection complete (Large joint x2) Office Meds lidocaine (PF) 10 mg/mL (1 %) injection solution Performing Provider: Ebony Handy MD Performing Location: [facility] Rheumatology Administered by: Ebony Handy MD on 10/21/24 10:59 Dose Route Admin Location Dispensed Lot Number Expiration Date [facility] 80 mg Infiltration Both knees 8 mL [id number] 01/07/27 63487-344-73 [facility] Kenalog 40 mg/mL suspension for injection Performing Provider: Ebony Handy MD Performing Location: [facility] Rheumatology Administered by: Ebony Handy MD on 10/21/24 10:59 Dose Route Admin Location Dispensed Lot Number Expiration Date [facility] 80 mg intra-articular Both knees 2 mL [id number] 04/08/26 [address]-8 [employer] Assessment & Plan Assessment & Plan (1) Vasculitis: Comment: Symptoms started in 2008, was started on methotrexate, ineffective dx 2012 P-ANCA GPA. 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 Doing very well overall. No signs of active vasculitis. Continue with maintenance rituximab infusion. Plan for rituximab dose 500 mg in January Labs before next visit in 3 months (2) Bilateral primary osteoarthritis of knee: Code(s): M17.0 - Bilateral primary osteoarthritis of knee Category: Medical Plan: Cortisone injections done 09/2023 were quite effective for about 3 months. Both knees injected again 01/2023 effective for 2-3 months. Injected again 06/2024 effective for 3 months. Knees are symptomatic again, requesting repeat injections. With patient's consent, both knees were injected with Kenalog today Plan I spent 26 minutes reviewing patient's chart, evaluating patient, ordering diagnostic workup, counseling patient and documenting in the chart Orders: Orders AMB Joint Injection/Aspiration Today M17.0 - Bilateral primary osteoarthritis of knee Complete Blood Count Auto Diff 3 Months I77.6 - Arteritis, unspecified Comprehensive Met. Panel 3 Months I77.6 - Arteritis, unspecified C Reactive Protein 3 Months I77.6 - Arteritis, unspecified Hepatitis A,B,C Profile 3 Months Z11.59 - Encounter for screening for other viral diseases T Spot TB 3 Months Z11.7 - Encounter for testing for latent tuberculosis infection Immunofixation Pnl, Serum 3 Months I77.6 - Arteritis, unspecified ANCA Vasculitides 3 Months I77.6 - Arteritis, unspecified Erythrocyte Sedimentation Rate 3 Months I77.6 - Arteritis, unspecified Protein Electrophoresis, Serum 3 Months I77.6 - Arteritis, unspecified Coding Level of Care Code Est Pt Level 4 (39002) Complex EM visit Add On G2211 Diagnoses Vasculitis I77.6 Bilateral primary osteoarthritis of knee M17.0 CPT Codes Coding - 91304 Large joint: 90619 - Large joint ([id number])
== END 2024-10-21 10:42 | disposition home or self-care (01) ==
PROVIDERS: PCP Internal Medicine; Visit Provider Student in an Organized Health Care Education/Training Program
DX: I77.6 Arteritis, unspecified (principal); M17.0 Bilateral primary osteoarthritis of knee
CPT/HCPCS: 20610; 99214

== ENCOUNTER → 2024-10-21 09:51 | Outpatient (BNVA) | payer BC, SELFPAY | PROVIDERS: PCP Internal Medicine; Visit Provider Student in an Organized Health Care Education/Training Program | DX: M17.0 Bilateral primary osteoarthritis of knee (principal); I77.6 Arteritis, unspecified | CPT/HCPCS: 20610; J2003; J3300 ==

== ENCOUNTER 2025-01-22 07:54 | Outpatient (REF) | payer BC, SELFPAY ==
--- OUTSIDE RECORDS SUMMARY | 2025-01-22 07:58 | XMS_ITS | Clinical Summary ---
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 May repeat dose once in 2 hours if no relief. Do not exceed 2 doses in 24 hours. 9 tablet 2 5 Active SUMAtriptan (IMITREX) 50 mg tablet TAKE 1 TAB AT ONSET OF MIGRAINE MAY REPEAT DOSE ONCE AFTER 2 HRS IF NEEDED. MAX 2 TABS/24HRS 9 tablet 2 5 01/10/20 25 Discontinu ed(Reorder ) Active Problems Problem Noted Date Diagnosed Date Class 2 obesity due to exces s calories without serious comorbidity with body mass index (BMI) of 38.0 to 38.9 in adult 09/18/2024 Prediabetes 12/30/2022 Vitamin D deficiency 12/29/2022 Hyperparathyroidism ([facility]/HCC V24) 01/29/2019 Migraine with aura and witho ut status migrainosus, not intractable 01/18/2018 Overview (09/18/2024): Follows with neurology of [facility] Severe obesity (BMI 35.0-39. 9) with comorbidity (CMS/HCC V24, CMS/HCC V28) 01/18/2018 Granulomatosis with polyangiitis (CMS/HCC V24, [facility] [place]/HCC V28) 12/25/2013 Overview (09/18/2024): Dr. Acharya ([facility] Rheum; 02/09/23) Encounters Date Type Department Care Team Description 01/09/2025 3:00 PM EDT Office Visit Adult Medicine [address] [address] Deedee Cerrato MD Adult general medical examination (Primary Dx); Mammogram declined; Vaccination refused by patient from Last 3 Months Immunizations Name Administration Dates Next Due Influenza trivalent, 0.5mL, preservative free (Fluarix; FluLaval; Fluzone) ages 6mo and older (Afluria) 3 years and older 07/31/2013 Surgical History Surgery Date Site/Laterality Comments WISDOM TOOTH EXTRACTION PROCEDURE: HISTORICAL WISDOM TEETH EXTRACTION Medical History Medical History Date Comments Migraine with aura and witho ut status migrainosus, not intractable 01/18/2018 DX:Migraine with aura and without status migrainosus, not intractable; COMMENT: Follows with neurology of [facility] Granulomatosis with polyangi itis ([facility]/HCC V24, [facility] V28) 01/18/2018 DX:Granulomatosis with poly angiitis (HCC); COMMENT: GPA is a necrotizing vasculitis predominantly involving small to medium sized vessels. It typically produces granulomatous inflammation of the of the upper and lower respiratory tracts as well necrotizing pauci-immune glomerulonephritis. Patient previously following with postdoctoral research fellow in [place] but reports that she's been classified as being in* Obesity (BMI 30-39.9) 01/18/2018 DX:Obesity (BMI 30-39.9) Saddle nose DX:Saddle nose Family History Medical History Relation Name Comments No Known Problems Brother Diabetes Father Heart attack Father Hypertension Father Other cancer Father bladder ca with mets to liver Other: amyloidosis Mother Breast cancer Neg Hx Colon cancer Neg Hx Ovarian cancer Neg Hx Stroke Neg Hx Relation Name Status Comments Brother Alive Father Mother Social History Tobacco Use Types Packs/Day Years Used Date Smoking Tobacco: Former Cigarettes Smokeless Tobacco: Never Tobacco Cessation:Counseling Given: Not Answered Alcohol Use Standard Drinks/Week Comments Yes 0 (1 standard drink = 0.6 oz pur e alcohol) Housing Instability Answer Date Recorde d Are you worried that in the next 2 months you may not have stable housing? No 01/05/2025 Food Access & Nutrition Answer Date Rec orded Do you have access to a vari ety of food including fruits and vegetables? Yes 01/05/2025 Access to Healthcare Answer Date Record ed Within the last 3 months, ho w many times did you visit the emergency department for your medical care? 0 01/05/2025 Health Literacy Answer Date Recorded How often do you need to hav e someone help you when you read instructions, pamphlets, or other written material from your doctor or pharmacy? Never 01/05/2025 Caregiver: How often do you need to have someone help you when you read instructions, pamphlets, or other written material from your doctor or pharmacy? Not on file 01/05/2025 Financial Risk Answer Date Recorded How hard is it for you to pa y for the very basics like food, housing, medical care, and air conditioning / heating? Somewhat hard 01/05/2025 Transportation Answer Date Recorded Has the lack of transportati on kept you from meetings, work, or from getting things needed for daily living? No Has the lack of transportati on kept you from medical appointments or from getting medications? No 01/05/2025 Social Isolation Answer Date Recorded How often do you feel lonely or isolated from th ose around you? Never 01/05/2025 Food Risk Answer Date Recorded Within the past 12 months we worried whether our food would run out before we got money to buy more. Never true 01/05/2025 Within the past 12 months th e food we bought just didn't last and we didn't have money to get more. Never true 01/05/2025 Dependent Care Answer Date Recorded Do you need help finding or paying for care for your loved ones. For example, childcare director or elderly care for an older adult? No 01/05/2025 Education Answer Date Recorded Do you think completing more education or training, like finishing a GED, going to college, or learning a trade, would be helpful for you? No 01/05/2025 Employment and Income Answer Date Recor ded During the last four weeks, have you been actively looking for work? No 01/05/2025 Living Situation Answer Date Recorded What is your living situation? 0 01/05/2025 Comments No Sex and Gender Information Value Date Recorded Sex Assigned at Not on file Legal Sex Female 11:19 AM EDT Gender Identity Not on file Sexual Orientation Not on file Obstetrics History Last Filed Vital Signs Vital Sign Reading Time Taken Comments Blood Pressure 130/80 01/09/2025 3:31 PM EDT Pulse 90 01/09/2025 3:00 PM EDT Temperature 36.4 ??C (97.6 ??F) 01/09/2025 3:00 PM ED T Respiratory Rate 15 01/09/2025 3:00 PM EDT Oxygen Saturation - - Inhaled Oxygen Concentration - - Weight 108 kg (238 lb) 01/09/2025 3:00 PM EDT Height 170.2 cm (5' 7 ) 01/09/2025 3:00 PM EDT Body Mass Index 37.28 01/09/2025 3:00 PM EDT Plan of Treatment Upcoming Encounters Date Type Department Care Team (Late st Contact Info) Description 01/12/2026 3:00 PM EDT Office Visit Adult Medicine [address] [phone] Deedee Cerrato MD [address] [place] [id number] Health Maintenance Due Date Last Done Comments Hepatitis B Vaccines (1 of 3 - 19+ 3-dose series) 1984 HIV Screening 08/05/2022 COVID-19 Vaccine (2023-2 5 season) 2024 02/09/2023, 01/15/2021 Influenza Vaccine (Season Ended) 2025 07/31/2013 Depression Screening 01/05/2026 01/05/2025 Social Influencers of Health Screening 01/05/2026 01/05/2025 Colorectal Cancer Screening: FIT-DNA (Cologuard) 03/02/2026 03/02/2023, 03/02/2023 Cervical Cancer Screening: HPV 09/17/2026 09/17/2021 Cholesterol Screening (Lipid Panel) 08/25/2027 08/25/2022 Hepatitis C Screening Completed 06/02/2022 Breast Cancer Screening Discontinued DTaP,Tdap,and Td Vaccines Discontinued HIB Vaccines Aged Out No longer eligi ble based on patient's age to complete this topic HPV Vaccines Aged Out No longer eligi ble based on patient's age to complete this topic Hepatitis A Vaccines Aged Out No long er eligible based on patient's age to complete this topic IPV Vaccines Aged Out No longer eligi ble based on patient's age to complete this topic MMR Vaccines Aged Out No longer eligi ble based on patient's age to complete this topic Meningococcal ACWY Vaccine Aged Out N o longer eligible based on patient's age to complete this topic Meningococcal B Vaccine Aged Out No l onger eligible based on patient's age to complete this topic Pneumococcal Vaccine: 50+ Years Discontinued Pneumococcal Vaccine: Pediatrics (0 to 5 Years) and At-Risk Patients (6 to 64 Years) Aged Out No longer eligible based on patient's age to complete this topic RSV Immunization Patients Under 20 months Aged Out No longer eligible based on patient's age to complete this topic Varicella Vaccines Aged Out No longer eligible based on patient's age to complete this topic Zoster Vaccines Discontinued Procedures Procedure Name Priority Date/Time Associated Diagnosis Comments LIPID PANEL Routine 08/25/2022 HEPATITIS C SCREENING Routine 06/02/2022 HPV Routine 09/17/2021 from Last 3 Months or Most Recently Relevant to Health Maintenance Results * Lipid panel (08/25/2022) [facility] LDL/HDL Ratio 3 0 - 4 Triglycerides 127 0 - 150 mg/dL Cholesterol 188 0 - 200 mg/dL HDL 72 >=40 mg/dL LDL Cholesterol 91 0 - 100 mg/dL Blood Venous blood specimen / Unknown us Historical Provider LAB BLOOD ORDERABLES Marixa l Result * Hepatitis C Screening (06/02/2022) [facility] Hepatitis C Screening Abstracted Historical Provider HEALTH MAINTENANCE Final Result * Cervical Cancer Screening: HPV (09/17/2021) [facility] Cervical Cancer Screening: HPV negative, abstracted us Historical Provider HEALTH MAINTENANCE Final Result from Last 3 Months or Most Recently Relevant to Health Maintenance Insurance Care Teams Bricklayer Paving B[employer] Relationship Specialty Start Date End Date Deedee Cerrato MD [address] [place] [address] [phone] PCP - General Internal Medicine 05/16/22
[2025-01-22 09:48] LABS: MANUAL DIFF FLAG NO
[2025-01-22 09:53] LABS: Basophils Absolute Auto 0.1 X10*3/uL (0.0-0.2); Basophils Percent Auto 0.9 % (0-2); Eosinophils Absolute Auto 0.3 X10*3/uL (0.0-0.4); Eosinophils Percent Auto 5.1 % (0-4); Hemoglobin 13.5 g/dl (12.0-16.0); Imm Gran Abs Auto 0.01 X10*3/uL (0.00-0.03); Imm Gran Pct Auto 0.2 % (0.0-0.4); Lymphocytes Absolute Auto 1.4 X10*3/uL (1.2-4.9); Mean Corpuscular HGB Conc 32.9 g/dl (31.0-35.0); Mean Corpuscular Hemoglobin 30.4 pg (27.0-33.0); Mean Corpuscular Volume 92.3 fL (80.0-98.0); Mean Platelet Volume 10.5 fL (9.4-12.3); Monocytes Absolute Auto 0.6 X10*3/uL (0.1-1.2); Monocytes Percent Auto 10.1 % (2-11); Neutrophils Absolute Auto 3.2 x10*3/uL (2.0-8.3); Neutrophils Percent Auto 58.7 % (45-73); Platelet Count 254 X10*3/uL (160-400); Red Blood Count 4.44 X10*6/uL (4.20-5.50); Red Cell Distribution Width 13.4 % (11.0-16.0); White Blood Count 5.5 X10*3/uL (4.8-10.8)
[2025-01-22 10:34] LABS: Erythrocyte Sedimentation Rate 14 MM/HR (0-20)
[2025-01-22 11:34] LABS: Alanine Aminotransferase 18 U/L (0-31); Albumin Level 3.9 g/dL (3.5-5.0); Alkaline Phosphatase 84 U/L (39-117); Anion Gap 12 (12-20); Aspartate Amino Transferase 20 U/L (5-31); Bilirubin Total 0.4 mg/dL (0.0-1.0); Blood Urea Nitrogen 19 mg/dL (9-16); C Reactive Protein 0.52 mg/dL (< or = 0.50); Carbon Dioxide 24 mmol/L (22-29); Chloride 110 mmol/L (96-108); Estimated Glomerular Filt Rate > 60; Glucose Random 103 mg/dL (60-115); Potassium 4.5 mmol/L (3.3-5.1); Sodium 141 mmol/L (135-145)
[2025-01-22 11:36] LABS: Cholesterol 168 mg/dL (<200); HDL Cholesterol 77 mg/dL (>40); LDL Cholesterol Calculated 80 mg/dL (<100); Triglycerides 56 mg/dL (<150)
[2025-01-22 12:24] LABS: Reflex LDLD? No
[2025-01-23 09:57] LABS: HBc Num1 0.09 S/CO (0.00-0.79); Hepatitis A Antibody IgM 0.13 Index (0-0.79); Hepatitis B Core Antibody Nonreactive (Nonreactive); ~HepC Num1 0.14 S/CO (0.00-0.79); ~Hepatitis A Antibody IgM Nonreactive (Nonreactive); ~Hepatitis B Surface Antibody REACTIVE (Nonreactive)
[2025-01-23 09:58] LABS: HBsAGNum1 0.34 S/CO (0.00-0.99); Hepatitis B Surface Antigen Negative (Negative); ~Hepatitis C Antibody Nonreactive (Nonreactive)
[2025-01-23 22:44] LABS: Myeloperoxidase Antibody 5.7 AI; Proteinase 3 PR3 Antibodies <1.0 AI
[2025-01-24 10:28] LABS: IgA 362 mg/dL (47-310); IgG 1332 mg/dL (600-1640); IgM 44 mg/dL (50-300)
[2025-01-24 15:08] LABS: Prot Elec - Albumin 3.9 g/dL (3.8-4.8); Prot Elec - Alpha1 0.3 g/dL (0.2-0.3); Prot Elec - Alpha2 0.6 g/dL (0.5-0.9); Prot Elec - Beta 1 0.5 g/dL (0.4-0.6); Prot Elec - Beta 2 0.5 g/dL (0.2-0.5); Prot Elec - Gamma 1.2 g/dL (0.8-1.7); Prot Elec - Total Protein 6.9 g/dL (6.1-8.1)
[2025-01-25 10:07] LABS: TS Negative Control Passed; TS Panel A 0; TS Panel B 0; TS Positive Control Passed; TSpotTB Negative (Negative)
== END 2025-01-22 07:55 | disposition home or self-care (01) ==
LOC: HO.10HDL 07:54
PROVIDERS: Referring Provider Internal Medicine; Visit Provider Student in an Organized Health Care Education/Training Program
DX: Z00.00 Encounter for general adult medical examination without abnormal findings (principal); Z13.6 Encounter for screening for cardiovascular disorders; Z11.7 Encounter for testing for latent tuberculosis infection; Z11.59 Encounter for screening for other viral diseases; I77.6 Arteritis, unspecified; Z72.89 Other problems related to lifestyle
CPT/HCPCS: 36415; 80053; 80061; 82784; 84165; 85025; 85652; 86021; 86140; 86334; 86481; 86704; 86706; 86709; 86803; 87340

== ENCOUNTER 2025-01-28 13:42 | Outpatient (AMB) | payer BC, SELFPAY ==
--- NOTE | 2025-01-28 13:59 | A.OFFVIS_ITS ---
Vital Signs 01/28/25 14:00 Height 5 ft 6 in Weight 232 lb 9.403 oz BMI 37.5 BP 134/78 Blood Pressure Location Lt brachial Position Sitting Pulse 93 Pulse Source Pulse Oximeter Pulse Oximetry (%) 97 Oxygen Delivery Method Room Air Intake Visit Reasons: Vasculitis Intake Note: Patient presents for follow up on vasculitis and lab review. She was last seen in the office by Dr. Handy on 10/21/24. 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 Handy. At that time she was following up for her bilateral knee OA as well as her MPO positive GPA. She reports that she was doing well with respect to her vasculitis. Got her knee injections at that time Today she reports no worsening of her skin rash. Complains of her bilateral knee pain requesting her injection today Rheumatologic History: GPA Symptoms started in 2008, was started on methotrexate, ineffective dx 2012 P-ANCA GPA. (inflammatory arthritis, skin rashes, saddle nose deformity, sinusitis) Received rituximab in 2012 in 2013 which put her in remission then lost to follow-up flare in 2022 inflammatory arthritis and skin rash (RTX 1 g X2 doses 03/31) effective, flare 01/2024 (1g Ritux effective) maintenance dose 0.5 g 07/2024 Initial history: This is a 57-year-old female with past medical history of vasculitis who presents for evaluation of vasculitis. Patient stated that she started having multiple joint pains as well as itchy skin rashes back in 2008. The skin rash was biopsied and per patient it was inconclusive. She was evaluat ed by a prosthetic aide Dr. Alan and was started on methotrexate without much improvement. Her skin rashes and joint pains got worse she was ultimately evaluated by prosthetic aide Dr. Adams in [place]. She had a repeat skin biopsy which was consistent with vasculitis. She also had a saddle nose. She was diagnosed with MPO positive vasculitis and started on rituximab treatment X 2 doses. She had a couple rounds of rituximab and felt great on it. 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 She had been in remission until December of 2022 when she developed petechial rashes on her extremities as well as joint pain and stiffness of her knees and ankles. She was prescribed a prednisone taper starting at 60 mg taper down to 20 mg in 1 week by her PCP with resolution of her symptoms. Patient also states that she has a hole in the roof of her mouth which is not particularly symptomatic. Current Rheumatology Medication(s): Rituxumab 500mg IV every 6 months FOR[facility]LY [facility], [facility] Medical History Respiratory symptoms Vasculitis Prediabetes Surgical History Doyle teeth extracted Family History Father Bladder cancer Diabetes HTN (hypertension) Myocardial infarct Mother Amyloidosis Social History Alcohol intake: current Alcohol intake frequency: holidays/special occasions only Patient Tobacco Use Status: Former Tobacco user e-Cigarette/Vaping Use: Never Used Current occupational status: employed Review of Systems Const Details: Review of Systems Constitutional: Denies fever, chills, weight loss ENT: Denies vision changes, eye pain or eye redness, dental caries, dry mouth GI: Denies nausea, vomiting, diarrhea, abdominal pain, change in BM Pulm: Denies SOB, OROPEZA, hemoptysis, wheezing Cards: Denies chest pain, palpitations Skin: Denies Raynaud's, rash, nail changes, photosensitivity, MANAGER CARDIOVASCULAR: Denies headaches, weakness, paresthesias, recurrent falls MSK: as per HPI All other systems reviewed and are unremarkable except noted above Physical Exam Vital Signs: Last Vital Signs Pulse 93 01/28/25 14:00 BP 134/78 01/28/25 14:00 Pulse Ox 97 01/28/25 14:00 Oxygen Delivery Method Room Air 01/28/25 14:00 BMI result Body Mass Index 37.5 Vital signs reviewed Physical Examination CONSTITUITIONAL Patient alert and cooperative. 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 CHEST/RESPIRATORY SYSTEM Normal respiratory effort and able to speak in complete sentences. ?Clear to a uscultation bilaterally. ?No crackles, rales, rhonchi, wheezes heard. CARDIAC SYSTEM Regular rate and rhythm. ?S1 and S2 heard no murmurs. ?Radial pulses intact bilaterally MSK Hands: ?Able to make a fist. No synovitis noted to the MCPs, PIPs or DIPs. ?No tenderness to palpation of these joints. No deformities noted. ? Wrists: ?Full range of motion at the wrists without pain. ?No tenderness to palpation or synovitis noted to the wrists. Elbows: Full range of motion without pain. No tenderness, weakness, swelling, increased warmth or erythema. Shoulders: Full range of active range of motion without pain. No tenderness, weakness, swelling, increased warmth or erythema. Hips: Full range of motion without pain. Hip bursa: No tenderness to palpation Knees: ?Full range of motion. ?Crepitations felt bilaterally with tenderness to palpation of the knee joint line Ankles: Full range of motion. ?No tenderness, swelling, increased warmth or erythema.? Feet: ?Negative squeeze test. ?No tenderness to palpation or swelling of the MTPs. Tender points:?No tenderness to palpation of the bilateral trapezius, supraspinatus, greater trochanters, anterior costochondral junctions, bilateral gluteal areas, bilateral suboccipital muscle insertions SKIN Skin intact without rashes. Results Reviewed Results Reviewed: Laboratory Tests 06/03/24 01/22/25 08:16 08:00 WBC 5.5 RBC 4.44 Hgb 13.5 Hct 41.0 Plt Count 254 ESR 14 Sodium 141 Potassium 4.5 Chloride 110 H Carbon Dioxide 24 BUN 19 H Creatinine 0.71 AST 20 ALT 18 Alkaline Phosphatase 84 C-Reactive Protein 0.65 H 0.52 H Immunology labs 12/27/23 01/22/25 10:50 08:00 IgG Total 1332 IgA Total 362 H IgM 44 L Proteinase 3 (PR3) Ab <1.0 <1.0 Myeloperoxidase Ab 5.7 H 5.7 H Infectious serology 01/22/25 08:00 Hepatitis A IgM Ab Nonreactive Hep Bs Antigen Negative Hep Bs Antibody REACTIVE Hep B Core Total Ab Nonreactive Hepatitis C Ab (EIA) Nonreactive TB Test (T-Spot) Com Negative Assessment & Plan Assessment & Plan (1) Vasculitis: Comment: Symptoms started in 2008, was started on methotrexate, ineffective dx 2012 P-ANCA GPA. 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 Currently in remission with no rashes, inflammatory joint pain and worsening sinus issues. Due for her rituximab Plan - Continue rituxumab maintenance dose 500mg IV every 6 months - RTC 3 months - Labs before visit: CBC, CMP, ESR, CRP, ANCA titres, UA, UPC (2) Bilateral primary osteoarthritis of knee: Code(s): M17.0 - Bilateral primary osteoarthritis of knee Category: Medical Plan: #Bilateral Knee OA Patient with bilateral knee OA who gets recurrent steroid injection to her knees every 3 months. Due for injection today We will consider gel injections in the future if steroid injections are no longe r efficacious Plan - S/p steroid injection to bilateral knees (3) Encounter for monitoring rituximab therapy: Code(s): Z51.81 - Encounter for therapeutic drug level monitoring; Z79.620 - electrical integrator (current) use of immunosuppressive biologic Plan: #Long-term Use of Rituxumab Discussed with this patient the risks and benefits of rituximab use to the management of the rheumatic condition Benefits include improved disease control and maintenance of remission Risks include hypogammaglobulinemia and increased risk of opportunistic infections, reactivation of hepatitis-B, infusion reactions Monitoring: ?Immunoglobulins, hepatitis-B serologies, CBC Plan I spent 36 minutes reviewing the record and labs, taking a history, examining the patient, discussing the treatment plan, ordering diagnostic work up and documenting in the medical record Orders: Orders AMB Joint Injection/Aspiration 01/28/25 Priya Carr MD M17.0 - Bilateral primary osteoarthritis of knee Complete Blood Count Auto Diff 3 Months Priya Carr MD I77.6 - Arteritis, unspecified Erythrocyte Sedimentation Rate 3 Months Priya Carr MD I77.6 - Arteritis, unspecified ANCA Vasculitides 3 Months Priya Carr MD I77.6 - Arteritis, unspecified Immunoglobulins,IgG IgA IgM 3 Months Priya Carr MD I77.6 - Arteritis, unspecified Protein Creatinine Ratio, Ur 3 Months Priya Carr MD I77.6 - Arteritis, unspecified AMB Joint Injection/Aspiration 01/28/25 Priya Carr MD M17.0 - Bilateral primary osteoarthritis of knee Comprehensive Met. Panel 3 Months Priya Carr MD I77.6 - Arteritis, unspecified C Reactive Protein 3 Months Priya Carr MD I77.6 - Arteritis, unspecified UA w Microscopic 3 Months Priya Carr MD I77.6 - Arteritis, unspecified Referrals Infusion Center Notification Priya Carr MD I77.6 - Arteritis, unspecified, Z51.81 - Encounter for therapeutic drug level monitoring, Z79.620 - prison (current) use of immunosuppressive biologic Medications: New Kenalog (triamcinolone acetonide) 40 mg intra-articular ONCE 1 mL 0RF NS Priya Carr MD M17.0 - Bilateral primary osteoarthritis of knee lidocaine (PF) 1 mL Infiltration ONCE 2 mL 0RF Priya Carr MD M17.0 - Bilateral primary osteoarthritis of knee Kenalog (triamcinolone acetonide) 40 mg intra-articular ONCE 1 mL 0RF NS Priya Carr MD M17.0 - Bilateral primary osteoarthritis of knee lidocaine (PF) 1 mL Infiltration ONCE 2 mL 0RF Priya Carr MD M17.0 - Bilateral primary osteoarthritis of knee Changed From rituximab-pvvr (100 mL) 1,000 mg intravenously at day 1 & day 15 to be re peated every 6 months 100 mL 10RF I77.6 - Arteritis, unspecified To rituximab-pvvr 500 mg intravenously to be repeated every 6 months I77.6 - Arteritis, unspecified Ebony Handy MD Coding Level of Care Code Est Pt Level 4 (66402) Complex EM visit Add On G2211 Diagnoses Vasculitis I77.6 Bilateral primary osteoarthritis of knee M17.0 Encounter for monitoring rituximab therapy Z51.81; Z79.620
[2025-01-28 14:00] VITALS: BP 134/78; PULSE 93; O2SAT 97; BMI 37.5
--- OUTSIDE RECORDS SUMMARY | 2025-01-28 16:20 | XMS_ITS | Clinical Summary ---
Author Organization Patient Business Ser [facility] Address [address] [place] [address] Care Team Providers Care Legal Cashier Name Role Phone Deedee Cerrato MD Primary [...] Prediabetes 12/30/2022 Vitamin D deficiency 12/29/2022 Hyperparathyroidism ([facility]/HCC V24) 01/29/2019 Migraine with aura and witho ut status migrainosus, not intractable 01/18/2018 Overview (09/18/2024): Follows with neurology of [facility] Severe obesity (BMI 35.0-39. 9) with comorbidity (CMS/HCC V24, CMS/HCC V28) 01/18/2018 Granulomatosis with polyangiitis (CMS/HCC V24, [facility] [place]/HCC V28) 12/25/2013 Overview (09/18/2024): Dr. Acharya ([facility] Rheum; 02/09/23) Encounters Date Type Department Care Team Description 01/09/2025 3:00 PM EDT Office Visit Adult Medicine [address] [phone] Deedee Cerrato MD Adult general medical examination [...] not intractable; COMMENT: Follows with neurology of [facility] Granulomatosis with polyangi itis ([facility]/HCC V24, [facility] V28) 01/18/2018 DX:Granulomatosis with poly angiitis (HCC); COMMENT: GPA is a necrotizing vasculitis predominantly involving small to medium sized vessels. It typically produces granulomatous inflammation of the of the upper and lower respiratory tracts as well necrotizing pauci-immune glomerulonephritis. 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 For example, child health associate or elderly care for an older adult? [...] 3:00 PM EDT Office Visit Adult Medicine [address] [phone] Deedee Cerrato MD [address] [place] [id number] Health Maintenance Due Date Last Done Comments [...] Health Maintenance Results * Lipid panel (08/25/2022) [facility] LDL/HDL Ratio 3 0 - 4 Triglycerides 127 0 - 150 mg/dL Cholesterol 188 0 - 200 mg/dL HDL 72 >=40 mg/dL LDL Cholesterol 91 0 - 100 mg/dL Blood Venous blood specimen / Unknown us Historical Provider LAB BLOOD ORDERABLES Marixa l Result * Hepatitis C Screening (06/02/2022) [facility] Hepatitis C Screening Abstracted Historical Provider HEALTH MAINTENANCE Final Result * Cervical Cancer Screening: HPV (09/17/2021) [facility] Cervical Cancer Screening: HPV negative, abstracted us Historical Provider HEALTH MAINTENANCE Final Result from Last 3 Months or Most Recently Relevant to Health Maintenance Insurance Care Teams Legal Cashier Relationship Specialty Start Date End Date Deedee Cerrato MD [address] [place] [address] [phone] PCP - General Internal Medicine 05/16/22
== END 2025-01-28 14:52 | disposition home or self-care (01) ==
LOC: HO.RHE 13:43
PROVIDERS: PCP Internal Medicine; Visit Provider Student in an Organized Health Care Education/Training Program
DX: I77.6 Arteritis, unspecified (principal); M17.0 Bilateral primary osteoarthritis of knee; Z51.81 Encounter for therapeutic drug level monitoring; Z79.620 Long term (current) use of immunosuppressive biologic
CPT/HCPCS: 99214

== ENCOUNTER → 2025-01-28 13:42 | Outpatient (BNVA) | payer BC, SELFPAY | PROVIDERS: PCP Internal Medicine; Visit Provider Student in an Organized Health Care Education/Training Program | DX: Z13.89 Encounter for screening for other disorder (principal) ==

== ENCOUNTER 2025-04-21 12:31 | Outpatient (REF) | payer BC, SELFPAY ==
[2025-04-21 13:08] LABS: MANUAL DIFF FLAG NO
[2025-04-21 13:14] LABS: Hematocrit 41.4 % (37.0-47.0); Hemoglobin 13.8 g/dl (12.0-16.0); Imm Gran Abs Auto 0.03 X10*3/uL (0.00-0.03); Imm Gran Pct Auto 0.4 % (0.0-0.4); Lymphocytes Absolute Auto 1.9 X10*3/uL (1.2-4.9); Mean Corpuscular HGB Conc 33.3 g/dl (31.0-35.0); Mean Corpuscular Hemoglobin 30.4 pg (27.0-33.0); Mean Corpuscular Volume 91.2 fL (80.0-98.0); NRBC Abs Auto 0.000 X10*3/uL (0.0-0.012); NRBC Pct Auto 0.0 /100WBC (0.0-0.2); Platelet Count 267 X10*3/uL (160-400); Red Blood Count 4.54 X10*6/uL (4.20-5.50); White Blood Count 7.8 X10*3/uL (4.8-10.8)
--- OUTSIDE RECORDS SUMMARY | 2025-04-21 13:27 | XMS_ITS | Clinical Summary ---
Author Organization Patient Business Ser [facility] Address [address] [place] [address] Care Team Providers Care Die Finisher Name Role Phone Deedee Cerrato MD Primary Care Prov ider Allergies No known active allergies Medications SUMAtriptan (IMITREX) 50 mg tablet Take 1 tablet (50 mg total) by mouth 1 (one) time if needed for migraine. May repeat dose once in 2 hours if no relief. Do not exceed 2 doses in 24 hours. 9 tablet 2 01/09/2025 Active Active Problems Problem Noted Date Diagnosed Date Class 2 obesity due to exces s calories without serious comorbidity with body mass index (BMI) of 38.0 to 38.9 in adult 09/18/2024 Prediabetes 12/30/2022 Vitamin D deficiency 12/29/2022 Hyperparathyroidism ([facility] V24) 01/29/2019 Migraine with aura and witho ut status migrainosus, not intractable 01/18/2018 Overview (09/18/2024): Follows with neurology of [facility] Severe obesity (BMI 35.0-39. 9) with comorbidity ([facility] V24, [facility] V28) 01/18/2018 Granulomatosis with polyangiitis ([facility] V[facility], [facility] V28) 12/25/2013 Overview (09/18/2024): Dr. Acharya ([facility] Rheum; 02/09/23) Immunizations Name Administration Dates Next Due Influenza [...] not intractable; COMMENT: Follows with neurology of [facility] Granulomatosis with polyangi itis ([facility] V24, [facility] V28) 01/18/2018 DX:Granulomatosis with poly angiitis (HCC); COMMENT: GPA is a necrotizing vasculitis predominantly involving small to medium sized vessels. It typically produces granulomatous inflammation of the of the upper and lower respiratory tracts as well necrotizing pauci-immune glomerulonephritis. Patient previously following with customer service teller in [place] but reports that she's been classified as [...] Record ed Within the last 3 months, fawn puri many times did you visit the emergency [...] care for your loved ones. For example, children's entertainer or elderly care for an older adult? [...] 90 01/09/2025 3:00 PM EDT Temperature 36.4 C (97.6 F) 01/09/2025 3:00 PM EDT Respiratory Rate 15 01/09/2025 3:00 PM EDT [...] 3:00 PM EDT Office Visit Adult Medicine [facility] [address] [place] [address] Deedee Cerrato MD [address] [place] [id number] Health Maintenance Due Date Last Done Comments Hepatitis B Vaccines (1 of 3 - 19+ 3-dose series) 1986 HIV Screening 08/05/2022 COVID-19 Vaccine (2023-2 5 season) 2024 02/09/2023, 01/15/2021 Influenza Vaccine (#1) 2025 07/31/2013 Depression Screening 01/05/2026 01/05/2025 Social [...] this topic Pneumococcal Vaccine: 50+ Years Discontinued RSV Immunization Patients Under 20 months Aged [...] Health Maintenance Results * Lipid panel (08/25/2022) LDL/HDL Ratio 3 0 - 4 Triglycerides 127 0 - 150 mg/dL Cholesterol 188 0 - 200 mg/dL HDL 72 >=40 mg/dL LDL Cholesterol 91 0 - 100 mg/dL Blood Venous blood specimen / Unknown [facility] Provider LAB BLOOD ORDERABLES Marixa l Result * Hepatitis C Screening (06/02/2022) Pathologist [facility] Hepatitis C Screening Abstracted [facility] Provider HEALTH MAINTENANCE Final Result * Cervical Cancer Screening: HPV (09/17/2021) Pathologist [facility] Cervical Cancer Screening: HPV negative, abstracted [facility] Provider HEALTH MAINTENANCE Final Result from Last 3 Months or Most Recently Relevant to Health Maintenance Insurance Care Teams Die Finisher Relationship Specialty Start Date End Date Deedee Cerrato MD [address] [place] [address] [phone] PCP - General Internal Medicine 05/16/22
[2025-04-21 14:31] LABS: Alanine Aminotransferase 17 U/L (0-31); Albumin Level 4.3 g/dL (3.5-5.0); Alkaline Phosphatase 86 U/L (39-117); Anion Gap 12 (12-20); Aspartate Amino Transferase 19 U/L (5-31); Blood Urea Nitrogen 14 mg/dL (9-16); Calcium 9.3 mg/dL (8.4-10.2); Carbon Dioxide 25 mmol/L (22-29); Chloride 109 mmol/L (96-108); Estimated Glomerular Filt Rate > 60; Potassium 4.0 mmol/L (3.3-5.1); Sodium 142 mmol/L (135-145); Total Protein 7.6 g/dL (6.5-8.0)
[2025-04-24 08:24] LABS: Proteinase 3 PR3 Antibodies <1.0 AI
== END 2025-04-21 12:32 | disposition home or self-care (01) ==
LOC: HO.10HDL 12:31
PROVIDERS: Visit Provider Student in an Organized Health Care Education/Training Program
DX: Z01.84 Encounter for antibody response examination (principal); I77.6 Arteritis, unspecified
CPT/HCPCS: 36415; 80053; 82784; 85025; 85652; 86021; 86140

== ENCOUNTER 2025-04-25 15:27 | Outpatient (AMB) | payer BC, SELFPAY ==
[2025-04-25 15:29] VITALS: BP 122/74; PULSE 87; O2SAT 96; BMI 17.2
--- NOTE | 2025-04-25 15:29 | A.OFFVIS_ITS ---
Vital Signs 04/25/25 15:29 Height 5 ft 6 in Weight 106 lb 6 oz BMI 17.2 BP 122/74 Blood Pressure Location Lt brachial Position Sitting Pulse 87 Pulse Source Pulse Oximeter Pulse Oximetry (%) 96 Oxygen Delivery Method Room Air Intake Visit Reasons: Vasculitis Intake Note: Patient last seen by Doctor Priya Carr on 01/28/25. Presents today for Vasculitis follow up and test results.Patient concerned about red spot on right leg. 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 - vasculitis sx stable - received knee injections Today, - knees still feel well, does not need injections today - has an erythematous area on the lower right leg - No new vasculitis sx Rheumatologic History: GPA Symptoms started in 2008, was started on methotrexate, ineffective dx 2012 P-ANCA GPA. (inflammatory arthritis, skin rashes, saddle nose deformity, sinusitis) Received rituximab in 2012 in 2013 which put her in remission then lost to follow-up flare in 2022 inflammatory arthritis and skin rash (RTX 1 g X2 doses 03/31) effective, flare 01/2024 (1g Ritux effective) maintenance dose 0.5 g 07/2024 Initial history: This is a 57-year-old female with past medical history of vasculitis who presents for evaluation of vasculitis. Patient stated that she started having multiple joint pains as well as itchy skin rashes back in 2008. The skin rash was biopsied and per patient it was inconclusive. She was evaluated by a content creation manager Dr. Alan and was started on methotrexate without much improvement. Her skin rashes and joint pains got worse she was ultimately evaluated by content creation manager Dr. Adams in [place]. She had a repeat skin biopsy which was consistent with vasculitis. She also had a saddle nose. She was diagnosed with MPO positive vasculitis and started on rituximab treatment X 2 doses. She had a couple rounds of rituximab and felt great on it. 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 She had been in remission until December of 2022 when she developed petechial rashes on her extremities as well as joint pain and stiffness of her knees and ankles. She was prescribed a prednisone taper starting at 60 mg taper down to 20 mg in 1 week by her PCP with resolution of her symptoms. Patient also states that she has a hole in the roof of her mouth which is not particularly symptomatic. Current Rheumatology Medication(s): Rituxumab 500mg IV every 6 months [facility] Medical History Respiratory symptoms Vasculitis Prediabetes Surgical History [place] teeth extracted Family History Father Bladder cancer Diabetes HTN (hypertension) Myocardial infarct Mother Amyloidosis Social History Alcohol intake: current Alcohol intake frequency: holidays/special occasions only Patient Tobacco Use Status: Former Tobacco user e-Cigarette/Vaping Use: Never Used Current occupational status: employed Review of Systems Const Details: Review of Systems Constitutional: Denies fever, chills, weight loss ENT: Denies vision changes, eye pain or eye redness, dental caries, dry mouth GI: Denies nausea, vomiting, diarrhea, abdominal pain, change in BM Pulm: Denies SOB, OROPEZA, hemoptysis, wheezing Cards: Denies chest pain, palpitations Skin: Denies Raynaud's, nail changes, photosensitivity, BORING MACHINE OPERATOR: Denies headaches, weakness, paresthesias, recurrent falls MSK: as per HPI All other systems reviewed and are unremarkable except noted above Physical Exam Exam Exam: Vital signs reviewed Physical Examination CONSTITUITIONAL Patient alert and cooperative. 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 CHEST/RESPIRATORY SYSTEM Normal respiratory effort and able to speak in complete sentences. ?Clear to auscultation bilaterally. ?No crackles, rales, rhonchi, wheezes heard. CARDIAC SYSTEM Regular rate and rhythm. ?S1 and S2 heard no murmurs. ?Radial pulses intact bilaterally MSK Hands: ?Able to make a fist. No synovitis noted to the MCPs, PIPs or DIPs. ?No tenderness to palpation of these joints. No deformities noted. ? Wrists: ?Full range of motion at the wrists without pain. ?No tenderness to palpation or synovitis noted to the wrists. Elbows: Full range of motion without pain. No tenderness, weakness, swelling, increased warmth or erythema. Shoulders: Full range of active range of motion without pain. No tenderness, weakness, swelling, increased warmth or erythema. Knees: ?Full range of motion. ?Crepitations felt bilaterally with tenderness to palpation of the knee joint line Ankles: Full range of motion. ?No tenderness, swelling, increased warmth or erythema.? Feet: ?Negative squeeze test. ?No tenderness to palpation or swelling of the MTPs. Tender points:?No tenderness to palpation of the bilateral trapezius, supraspi natus, greater trochanters, anterior costochondral junctions, bilateral gluteal areas, bilateral suboccipital muscle insertions SKIN Erythematous rash on lower right leg Blanching No warmth Vital Signs: Last Vital Signs Pulse 87 04/25/25 15:29 BP 122/74 04/25/25 15:29 Pulse Ox 96 04/25/25 15:29 Oxygen Delivery Method Room Air 04/25/25 15:29 BMI result Body Mass Index 17.2 Results Reviewed Results Reviewed: Laboratory Tests 01/22/25 04/21/25 08:00 12:35 WBC 7.8 RBC 4.54 Hgb 13.8 Plt Count 267 ESR 19 Sodium 142 Potassium 4.0 Chloride 109 H Carbon Dioxide 25 BUN 14 Creatinine 0.60 AST 19 ALT 17 Alkaline Phosphatase 86 C-Reactive Protein 0.52 H 0.92 H Laboratory Tests 01/22/25 04/21/25 08:00 12:35 Proteinase 3 (PR3) Ab <1.0 <1.0 Myeloperoxidase Ab 5.7 H 7.0 H Laboratory Tests 02/09/23 13:00 Ur Specific [place] 1.025 Urine Protein Negative Urine Blood Negative U Random Total Protein 8 Protein/Creatinin Ratio 0.06 Assessment & Plan Assessment & Plan (1) Vasculitis: Comment: Symptoms started in 2008, was started on methotrexate, ineffective dx 2012 P-ANCA GPA. 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 Currently in remission with no rashes, inflammatory joint pain and worsening sinus issues. MPO slightly increased but without worsening disease on exam Discussed with patient and we will continue to monitor this Plan - Continue rituxumab maintenance dose 500mg IV every 6 months - RTC 3 months - Labs before visit: CBC, CMP, ESR, CRP, ANCA titres, UA, UPC (2) Bilateral primary osteoarthritis of knee: Code(s): M17.0 - Bilateral primary osteoarthritis of knee Category: Medical Plan: #Bilateral Knee OA Patient with bilateral knee OA who gets recurrent steroid injection to her knees every 3 months. Due for injection today Doing well and would like to defer injection today (3) Rash: Code(s): R21 - Rash and other nonspecific skin eruption Plan: #Rash Patient with erythematous rash on leg Has happened in the past and resolved on its own Placed borders on it and instructed patient that if the area goes beyond the borders in the next week she is to contact the office and we will prescribe antibiotics (4) Encounter for monitoring rituximab therapy: Code(s): Z51.81 - Encounter for therapeutic drug level monitoring; Z79.620 - assistant terminal manager (current) use of immunosuppressive biologic Plan: #Long-term Use of Rituxumab Discussed with this patient the risks and benefits of rituximab use to the management of the rheumatic condition Benefits include improved disease control and maintenance of remission Risks include hypogammaglobulinemia and increased risk of opportunistic infections, reactivation of hepatitis-B, infusion reactions Monitoring: ?Immunoglobulins, hepatitis-B serologies, CBC Plan I spent 30 minutes reviewing the record and labs, taking a history, examining the patient, discussing the treatment plan, ordering diagnostic work up and documenting in the medical record Coding Level of Care Code Est Pt Level 4 (90295) Complex EM visit Add On G2211 Diagnoses Vasculitis I77.6 Bilateral primary osteoarthritis of knee M17.0 Rash R21 Encounter for monitoring rituximab therapy Z51.81; Z79.620
--- OUTSIDE RECORDS SUMMARY | 2025-04-25 15:29 | XMS_ITS | Clinical Summary ---
Author Organization Patient Business Ser [facility] [place] Address [address] [place] [address] Care Team Providers Care Porcelain Enameler Name Role Phone Deedee Cerrato MD Primary [...] Prediabetes 12/30/2022 Vitamin D deficiency 12/29/2022 Hyperparathyroidism ([facility] V24) 01/29/2019 Migraine with aura and witho ut status migrainosus, not intractable 01/18/2018 Overview (09/18/2024): Follows with neurology of [facility] Severe obesity (BMI 35.0-39. 9) with comorbidity ([facility] V24, [facility] V28) 01/18/2018 Granulomatosis with polyangiitis ([facility], [facility] V28) 12/25/2013 Overview (09/18/2024): Dr. Acharya ([facility] Rheum; 02/09/23) Immunizations Name Administration Dates Next [...] intractable; COMMENT: Follows with neurology of [facility] Granulomatosis with polyangi itis ([facility] V24, [facility] V28) 01/18/2018 DX:Granulomatosis with poly angiitis (HCC); COMMENT: GPA is a necrotizing vasculitis predominantly involving small to medium sized vessels. It typically produces granulomatous inflammation of the of the upper and lower respiratory tracts as well necrotizing pauci-immune glomerulonephritis. Patient previously following with net programmer in [place] but reports that she's been classified as [...] for your loved ones. For example, child watch attendant or elderly care for an older adult? [...] 3:00 PM EDT Office Visit Adult Medicine [facility] [address] [place] [address] Deedee Cerrato MD [address] [place] [phone] Health Maintenance Due Date Last Done Comments [...] mg/dL Blood Venous blood specimen / Unknown [facility] Provider LAB BLOOD ORDERABLES Marixa l Result * Hepatitis C Screening (06/02/2022) Pathologist [facility] Hepatitis C Screening Abstracted [facility] Provider HEALTH MAINTENANCE Final Result * Cervical Cancer Screening: HPV (09/17/2021) Pathologist [facility] Cervical Cancer Screening: HPV negative, abstracted [facility] Provider HEALTH MAINTENANCE Final Result from Last 3 Months or Most Recently Relevant to Health Maintenance Insurance * Guarantor: Kira Don Account Type Relation to Patient Date of Phone Billing Address Personal/Family Self [address] Care Teams Porcelain Enameler Relationship Specialty Start Date End Date Deedee Cerrato MD [address] [place] [address] [phone] PCP - General Internal Medicine 05/16/22
== END 2025-04-25 15:55 | disposition home or self-care (01) ==
LOC: HO.RHE 15:27
PROVIDERS: PCP Internal Medicine; Visit Provider Student in an Organized Health Care Education/Training Program
DX: I77.6 Arteritis, unspecified (principal); M17.0 Bilateral primary osteoarthritis of knee; R21 Rash and other nonspecific skin eruption; Z51.81 Encounter for therapeutic drug level monitoring; Z79.620 Long term (current) use of immunosuppressive biologic
CPT/HCPCS: 99214

== ENCOUNTER 2025-06-25 08:08 | Outpatient (AMB) | payer BC, SELFPAY ==
--- NOTE | 2025-06-25 08:16 | A.OFFVIS_ITS ---
Vital Signs 06/25/25 08:20 Height 5 ft 6 in Weight 230 lb 9.656 oz BMI 37.2 BP 134/90 H Blood Pressure Location Lt brachial Position Sitting Pulse 78 Pulse Source Pulse Oximeter Pulse Oximetry (%) 98 Oxygen Delivery Method Room Air Intake Visit Reasons: knee injection Intake Note: Patient presents for knee injection follow up. 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 (inflammatory arthritis, skin rashes, saddle nose deformity, sinusitis) Received rituximab in 2012 in 2013 which put her in remission then lost to follow-up flare in 2022 inflammatory arthritis and skin rash (RTX 1 g X2 doses 03/31) effective, flare 01/2024 (1g Ritux effective) maintenance dose 0.5 g 07/2024 Initial history: This is a 57-year-old female with past medical history of vasculitis who presents for evaluation of vasculitis. Patient stated that she started having multiple joint pains as well as itchy skin rashes back in 2008. The skin rash was biopsied and per patient it was inconclusive. She was evaluated by a mechanism assembler Dr. Alan and was started on methotrexate without much improvement. Her skin rashes and joint pains got worse she was ultimately evaluated by mechanism assembler Dr. Adams in [place]. She had a repeat skin biopsy which was consistent with vasculitis. She also had a saddle nose. She was diagnosed with MPO positive vasculitis and started on rituximab treatment X 2 doses. She had a couple rounds of rituximab and felt great on it. 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 She had been in remission until December of 2022 when she developed petechial rashes on her extremities as well as joint pain and stiffness of her knees and ankles. She was prescribed a prednisone taper starting at 60 mg taper down to 20 mg in 1 week by her PCP with resolution of her symptoms. Patient also states that she has a hole in the roof of her mouth which is not particularly symptomatic. Current Rheumatology Medication(s): Rituxumab 500mg IV every 6 months [facility] Medical History Respiratory symptoms Vasculitis Prediabetes Surgical History Nelson teeth extracted Family History Father Bladder cancer Diabetes HTN (hypertension) Myocardial infarct Mother Amyloidosis Social History Alcohol intake: current Alcohol intake frequency: holidays/special occasions only Patient Tobacco Use Status: Former Tobacco user e-Cigarette/Vaping Use: Never Used Current occupational status: employed Review of Systems Const All systems reviewed & are unremarkable except as noted in HPI and below Physical Exam Exam Exam: Vital signs reviewed Physical Examination CONSTITUITIONAL Patient alert and cooperative. Well appearing and in no apparent painful distress HEENT Conjunctiva and sclera clear. No lymphadenopathy. Nasal septal defect 2/2 vasculitis MSK Knees * Right knee: Full ROM. No swelling noted. No TTP of the knee joint line. No TTP of pes anserine bursa * Left knee: Full ROM. No swelling noted. No TTP of the knee joint line. No TTP of pes anserine bursa. Lower extremity * Right leg pitting edema up to the tibial tuberosity. Slightly larger than the right * Left leg pitting edema up to the tibial tuberosity SKIN No rashes Vital Signs: Last Vital Signs Pulse 78 06/25/25 08:20 BP 134/90 H 06/25/25 08:20 Pulse Ox 98 06/25/25 08:20 Oxygen Delivery Method Room Air 06/25/25 08:20 BMI result Body Mass Index 37.2 Office Procedures AMB Joint Injection/Aspiration Joint Injection/Aspiration Details: Procedure was explained to the patient and informed consent was obtained. ? Risks associated with the procedure were discussed with the patient including but not limited to bleeding, infection, drug reactions and reactions to the topical anesthetic. Patient made aware of signs to look out for infectious complications. The area of interest was identified and confirmed with patient. ?This was subsequently cleaned with chlorhexidine x 2. ? The area was then anesthetized using ethyl chloride spray. 40 mg Kenalog with 1 cc 1% lidocaine was injected without issue. ?Minimal to no bleeding. ?Patient tolerated procedure. Primary Site: right knee Prep: site was prepped using aseptic technique and ethochloride spray was applied Injected: 40 mg of, Kenalog, with 1 mL of and 1% plain lidocaine Approach Used: anterior Procedure: The patient tolerated the procedure well Coding 68594 - Large joint Procedure code (CPT) selection complete AMB Joint Injection/Aspiration Joint Injection/Aspiration Details: Procedure was explained to the patient and informed consent was obtained. ? Risks associated with the procedure were discussed with the patient including but not limited to bleeding, infection, drug reactions and reactions to the topical anesthetic. Patient made aware of signs to look out for infectious complications. The area of interest was identified and confirmed with patient. ?This was subsequently cleaned with chlorhexidine x 2. ? The area was then anesthetized using ethyl chloride spray. 40 mg Kenalog with 1 cc 1% lidocaine was injected without issue. ?Minimal to no bleeding. ?Patient tolerated procedure. Primary Site: left knee Prep: site was prepped using aseptic technique and ethochloride spray was applied Injected: 40 mg of, Kenalog, with 1 mL of and 1% plain lidocaine Approach Used: anterior Procedure: The patient tolerated the procedure well Coding 89391 - Large joint Procedure code (CPT) selection complete Office Meds lidocaine (PF) 10 mg/mL (1 %) injection solution Performing Provider: Priya Carr MD Performing Location: [facility] Administered by: Sinan Medrano RN on 06/25/25 08:43 Dose Route Admin Location Dispensed Lot Number Expiration Date [facility] [employer] 1 mL Infiltration right knee 2 mL [id number] 01/06/27 48452-455-89 [facility] [employer] Total Dispensed Waste 2 mL 50 % Kenalog 40 mg/mL suspension for injection Performing Provider: Priya Carr MD Performing Location: [facility] Administered by: Sinan Medrano RN on 06/25/25 08:43 Dose Route Admin Location Dispensed Lot Number Expiration Date [place] [employer] 40 mg intra-articular right knee 1 mL [id number] 04/07/26 [address]- 1 [employer] Total Dispensed Waste 1 mL 0 % lidocaine (PF) 10 mg/mL (1 %) injection solution Performing Provider: Priya Carr MD Performing Location: [facility] Administered by: Sinan Medrano RN on 06/25/25 08:43 Dose Route Admin Location Dispensed Lot Number Expiration Date [place] [employer] 1 mL Infiltration left knee 2 mL [id number] 01/06/27 32862-628-13 [employer] Total Dispensed Waste 2 mL 50 % Kenalog 40 mg/mL suspension for injection Performing Provider: Priya Carr MD Performing Location: [facility] Administered by: Sinan Medrano RN on 06/25/25 08:43 Dose Route Admin Location Dispensed Lot Number Expiration Date [place] [employer] 40 mg intra-articular left knee 1 mL [id number] 04/07/26 [address]-2 [employer] Total Dispensed Waste 1 mL 0 % Results Reviewed Results Reviewed: XR Bilateral Knees 03/2024 FINDINGS: Right knee: There is marked joint space narrowing of the medial joint compartment. Marginal osteophytes involve the medial and lateral joint compartment. There is moderate genu varus. Left knee: There is marked narrowing of the medial joint compartment with marginal osteophytes involving the medial and lateral joint compartments. There is moderate degenerative varus. IMPRESSION: Bilateral marked osteoarthritis involving the medial joint compartments. Assessment & Plan Assessment & Plan (1) Bilateral primary osteoarthritis of knee: Code(s): M17.0 - Bilateral primary osteoarthritis of knee Category: Medical Plan: #Bilateral knee OA Patient is a 60-year-old female with vasculitis here today for urgent visit for bilateral knee pain requesting steroid injections Plan - S/p bilateral steroid injection - F/u for regular appointment in [place] - Labs prior to visit: CBC, CMP, ESR, CRP, UA, UPC, ANCA Plan I spent 20 minutes reviewing the record and XRs, taking a history, examining the patient, discussing the treatment plan, and documenting in the medical record Orders: Orders AMB Joint Injection/Aspiration Today M17.0 - Bilateral primary osteoarthritis of knee Complete Blood Count Auto Diff 07/08/25 I77.6 - Arteritis, unspecified Comprehensive Met. Panel 07/08/25 I77.6 - Arteritis, unspecified Immunoglobulins,IgG IgA IgM 07/08/25 I77.6 - Arteritis, unspecified AMB Joint Injection/Aspiration Today M17.0 - Bilateral primary osteoarthritis of knee ANCA Vasculitides 07/08/25 I77.6 - Arteritis, unspecified C Reactive Protein 07/08/25 I77.6 - Arteritis, unspecified Erythrocyte Sedimentation Rate 07/08/25 I77.6 - Arteritis, unspecified Protein Creatinine Ratio, Ur 07/08/25 M32.9 - Systemic lupus erythematosus, unspecified UA ClnCatch+Micro w/rflx Cult 07/08/25 M32.9 - Systemic lupus erythematosus, unspecified Coding Level of Care Code Est Pt Level 3 (65372) Diagnoses Bilateral primary osteoarthritis of knee M17.0 CPT Codes Coding - 53847 Large joint: 38592 - Large joint ([id number]) Coding - 26799 Large joint: 43957 - Large joint ([id number])
[2025-06-25 08:20] VITALS: BP 134/90; PULSE 78; O2SAT 98; BMI 37.2
--- OUTSIDE RECORDS SUMMARY | 2025-06-25 09:01 | XMS_ITS | Clinical Summary ---
Author Organization Patient Business Ser [facility] [place] Address [address] [place] [address] Care Team Providers Care Entry Level Sales Associate Name Role Phone Deedee Cerrato MD Primary [...] Prediabetes 12/30/2022 Vitamin D deficiency 12/29/2022 Hyperparathyroidism ([facility] V24) 01/29/2019 Migraine with aura and witho ut status migrainosus, not intractable 01/18/2018 Overview (09/18/2024): Follows with neurology of [facility] Severe obesity (BMI 35.0-39. 9) with comorbidity ([facility]/HCC V24, [facility] V28) 01/18/2018 Granulomatosis with polyangiitis ([facility] V24, C CT/[facility] V28) 12/25/2013 Overview (09/18/2024): Dr. Acharya ([facility] Rheum; 02/09/23) Encounters Date Type Department Care Team Description 05/07/2025 10:30 AM EDT Office Visit Adult Medicine [address] [phone] Deedee Cerrato MD Cellulitis of right lower extremity (Primary Dx) 05/06/2025 Telephone Adult Medicine [address] [phone] Deedee Cerrato MD from Last 3 Months Immunizations Name Administration [...] not intractable; COMMENT: Follows with neurology of [facility] Granulomatosis with polyangi itis ([facility]/HCC V24, [facility] V28) 01/18/2018 DX:Granulomatosis with poly angiitis (HCC); COMMENT: GPA is a necrotizing vasculitis predominantly involving small to medium sized vessels. It typically produces granulomatous inflammation of the of the upper and lower respiratory tracts as well necrotizing pauci-immune glomerulonephritis. 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 For example, child welfare assistant or elderly care for an older adult? [...] Sign Reading Time Taken Comments Blood Pressure 127/83 05/07/2025 10:30 AM EDT Pulse 70 05/07/2025 10:30 AM EDT Temperature 36.4 C (97.5 F) 05/07/2025 10:30 AM EDT Respiratory Rate 15 05/07/2025 10:30 AM EDT Oxygen Saturation - - Inhaled Oxygen Concentration - - Weight 106 kg (233 lb 9.6 oz) 05/07/2025 10:30 A M EDT Height 167.6 cm (5' 6 ) 05/07/2025 10:30 AM EDT Body Mass Index 37.7 05/07/2025 10:30 AM EDT Plan of Treatment Upcoming Encounters Date Type Department Care Team (Late st Contact Info) Description 01/12/2026 3:00 PM EDT Office Visit Adult Medicine [facility] [address] [place] [address] Deedee Cerrato MD [address] [place] [address] Health Maintenance Due Date Last Done Comments Hepatitis B Vaccines (1 of 3 - 19+ 3-dose series) 1986 HIV Screening 08/05/2022 COVID-19 Vaccine (3 - 2024-2 6 season) 2025 02/09/2023, 01/15/2021 Influenza Vaccine (#1) 2025 07/31/2013 Social Influencers of Health Screening 01/05/2026 01/05/2025 Colorectal Cancer Screening: FIT-DNA (Cologuard) 03/02/2026 03/02/2023, 03/02/2023 Cervical Cancer Screening: HPV 09/17/2026 09/17/2021 Cholesterol Screening (Lipid Panel) 08/25/2027 08/25/2022 Hepatitis C Screening Completed 06/02/2022 Depression Screening Completed 01/05/2025 Breast Cancer Screening Discontinued DTaP,Tdap,and Td Vaccines [...] Health Maintenance Results * Lipid panel (08/25/2022) [facility] LDL/HDL Ratio 3 0 - 4 Triglycerides 127 0 - 150 mg/dL Cholesterol 188 0 - 200 mg/dL HDL 72 >=40 mg/dL LDL Cholesterol 91 0 - 100 mg/dL Blood Venous blood specimen / Unknown Historical Provider LAB BLOOD ORDERABLES Marixa l Result * Hepatitis C Screening (06/02/2022) Pathologist [facility] Hepatitis C Screening Abstracted Historical Provider HEALTH MAINTENANCE Final Result * Cervical Cancer Screening: HPV (09/17/2021) [facility] Cervical Cancer Screening: HPV negative, abstracted Historical Provider HEALTH MAINTENANCE Final Result from Last 3 Months or Most Recently Relevant to Health Maintenance Insurance [facility] Care Teams Entry Level Sales Associate Relationship Specialty Start Date End Date Deedee Cerrato MD [address] [place] [address] PCP - General Internal Medicine 05/16/22
--- OUTSIDE RECORDS SUMMARY | 2025-06-25 09:01 | XMS_ITS | Clinical Summary ---
Author Organization [facility] Address [address] [address] Phone Care Team Providers Care Distributed Generation Project Manager Name Role Phone Deedee Cerrato MD Primary Care Prov ider Allergies No known active allergies Medications naproxen (NAPROSYN) 500 MG tablet Take 1 tablet (500 mg total) by mouth 2 (two) times a day. 60 tablet 5 6 Active Additional Information Patient not taking.Reported on 08/31/2022 omeprazole (PRILOSEC) 20 MG capsule Take 1 capsule (20 mg total) by mouth daily. 30 capsule 11 6 Active Additional Information Patient not taking.Reported on 08/31/2022 ergocalciferol (DRISDOL) 50,000 unit capsule Take 1 capsule (50,000 Units total) by mouth once a week. 12 capsule 0 6 Active Additional Information Patient not taking.Reported on 08/31/2022 VITAMIN D3 25 mcg (1,000 unit) capsule Take by mouth daily. 2 Active SUMAtriptan (IMITREX) 50 MG tablet TAKE 1 TAB ONCE, IF NO RELIEF IN 2 HOURS CAN REPEAT DOSE (MAX 2 PER DAY) 2 Active triamcinolone acetonide 0.025 % cream APPLY 1 DOSE TOPICALLY 2 TIMES DAILY FOR 10 DAYS. 2 Active Active Problems Problem Noted Date Diagnosed Date Granulomatosis with polyangiitis 12/25/2013 Overview (11/29/2014): Alesia's granulomatosis Arthritis 06/24/2013 Overview (11/29/2014): Arthritis; ankles, knees, wrist Immunizations Immunization Administration Dates Next Due INFLUENZA, SPLIT VIRUS, TRIVALENT PF 07/31/2013 Social History Tobacco Use Types Packs/Day Years Used Date Smoking Tobacco: Some Days Cigarettes Smokeless Tobacco: Never Tobacco Cessation:Ready to Q uit: Not Asked; Counseling Given: Not Answered Comments:Smoking History Packs/day: <=0.5 Education Answer Date Recorded Are you interested in more education? Not on mercedes e 02/02/2023 Are you concerned about learning? Not on file 02/02/2023 No 02/02/2023 No 02/02/2023 Digital Access Answer Date Recorded No 03/06/2023 No 03/06/2023 No 03/06/2023 Reliable internet access at home? Not on file 03/06/2023 Device with a working camera? Not on file Comments Unknown Sex and Gender Information Value Date Recorded Sex Assigned at Not on file Legal Sex Female 7:16 PM EST Gender Identity Not on file Sexual Orientation Not on file Last Filed Vital Signs Vital Sign Reading Time Taken Comments Blood Pressure 143/85 08/31/2022 11:21 AM EST Pulse 82 08/31/2022 11:21 AM EST Temperature 36.7 C (98.1 F) 08/31/2022 11:21 AM EST Respiratory Rate 20 08/31/2022 11:2 1 AM EST Oxygen Saturation 98% 08/31/2022 11: 21 AM EST Inhaled Oxygen Concentration - - Weight 105.7 kg (233 lb) 08/31/2022 11: 21 AM EST Height 167.6 cm (5' 6 ) 08/31/2022 11:2 1 AM EST patient reported Body Mass Index 37.61 08/31/2022 11:21 AM EST Plan of Treatment Health Maintenance Due Date Last Done Comments Adult Td,Tdap Booster 1967 LIPID PANEL 1967 DEPRESSION SCREENING 1979 SMOKING Hx and SMOKELESS TOB ACCO SCREENING 1980 HEPATITIS C SCREENING 1985 HIV ONE-TIME SCREENING (18-6 5 YEARS) 1985 PNEUMOCOCCAL VACCINES (50+ y ears) (1 of 2 - PCV) 1986 PAP SMEAR 1988 MAMMOGRAM 2007 COLOGUARD 2012 COLONOSCOPY 2012 COLORECTAL CANCER SCREENING 2012 FIT TEST 2012 FOBT 2012 SIGMOIDOSCOPY 2012 VIRTUAL COLONOSCOPY 2012 ZOSTER VACCINES (1 of 2) 2017 SCREENING FOR DIABETES 03/10/2019 03/10/2016 INFLUENZA VACCINE (#1) 2025 07/31/2013 COVID-19 VACCINE (2 - 2024-2 6 season) 2025 01/15/2021 HEPATITIS A VACCINES Aged Out No long er eligible based on patient's age to complete this topic HIB VACCINES Aged Out No longer eligi ble based on patient's age to complete this topic MENINGOCOCCAL VACCINES (ACWY) Aged Out No longer eligible based on patient's age to complete this topic MENINGOCOCCAL VACCINES (B) Aged Out N o longer eligible based on patient's age to complete this topic Medical Devices Not on file Insurance PPO [employer] PPO [employer] PPO [employer] [place] [address] [place] [address] [employer]ORT PPO [facility] [employer] [place] [employer] PPO [employer] PPO [employer] PPO Care Teams Distributed Generation Project Manager Relationship Specialty Start Date End Date Deedee Cerrato MD [address] [place] [id number] PCP - General Unknown Provider Specialty 08/31/22 Additional Source Comments The information contained in this document represents components of the legal health record. It is not the complete legal health record.[facility]
== END 2025-06-25 09:58 | disposition home or self-care (01) ==
LOC: HO.RHES 08:09
PROVIDERS: PCP Internal Medicine; Visit Provider Student in an Organized Health Care Education/Training Program
DX: M17.0 Bilateral primary osteoarthritis of knee (principal)
CPT/HCPCS: 20610; 99213

== ENCOUNTER → 2025-06-25 08:08 | Outpatient (BNVA) | payer BC, SELFPAY | PROVIDERS: PCP Internal Medicine; Visit Provider Student in an Organized Health Care Education/Training Program | DX: M17.0 Bilateral primary osteoarthritis of knee (principal) | CPT/HCPCS: 20610; J2003; J3301 ==

== ENCOUNTER 2025-07-25 12:42 | Outpatient (REF) | payer BC, SELFPAY ==
[2025-07-25 13:15] LABS: MANUAL DIFF FLAG NO
[2025-07-25 13:50] LABS: Hematocrit 42.7 % (37.0-47.0); Hemoglobin 14.1 g/dl (12.0-16.0); Imm Gran Abs Auto 0.03 X10*3/uL (0.00-0.03); Imm Gran Pct Auto 0.4 % (0.0-0.4); Lymphocytes Absolute Auto 2.3 X10*3/uL (1.2-4.9); Mean Corpuscular HGB Conc 33.0 g/dl (31.0-35.0); Mean Corpuscular Hemoglobin 30.6 pg (27.0-33.0); Mean Corpuscular Volume 92.6 fL (80.0-98.0); NRBC Abs Auto 0.000 X10*3/uL (0.0-0.012); NRBC Pct Auto 0.0 /100WBC (0.0-0.2); Platelet Count 297 X10*3/uL (160-400); Red Blood Count 4.61 X10*6/uL (4.20-5.50); White Blood Count 8.1 X10*3/uL (4.8-10.8)
--- OUTSIDE RECORDS SUMMARY | 2025-07-25 15:02 | XMS_ITS | Clinical Summary ---
Author Organization [facility] Address [address] [address] Phone Care Team Providers Care Billing Services Manager Name Role Phone Deedee Cerrato MD [...] (2 - 2024-2 6 season) 2025 01/15/2021 RSV VACCINE (1 - 1-dose 75+ series) 2042 HEPATITIS A VACCINES Aged Out No long [...] Medical Devices Not on file [place] [address] [place] [address] [employer] PPO [employer] [address] [place] [address] [employer] [place] [address] [place] [address] [employer] [place] [employer] P[employer] PPO [employer] PPO Care Teams Billing Services Manager Relationship Specialty Start Date End Date Deedee Cerrato MD [address] [place] [id number] PCP - General Unknown Provider Specialty 08/31/22 Additional Source Comments The information contained in this document represents components of the legal health record. It is not the complete legal health record.[facility]
--- OUTSIDE RECORDS SUMMARY | 2025-07-25 15:02 | XMS_ITS | Clinical Summary ---
Author Organization [facility] Address [address] [place] [address] Care Team Providers Care Yarn Examiner Name Role Phone Deedee Cerrato MD Primary Care Prov ider Allergies No known active allergies Medications SUMAtriptan (IMITREX) 50 mg tablet TAKE 1 TAB AT ONSET OF MIGRAINE MAY REPEAT DOSE ONCE AFTER 2 HRS IF NEEDED. MAX 2 TABS/24HRS 9 tablet 2 5 Active SUMAtriptan (IMITREX) 50 mg tablet Take 1 tablet (50 mg total) by mouth 1 (one) time if needed for migraine. May repeat dose once in 2 hours if no relief. Do not exceed 2 doses in 24 hours. 9 tablet 2 5 025 Discontinued Active Problems Problem Noted Date Diagnosed Date Class 2 obesity due to exces s calories without serious comorbidity with body mass index (BMI) of 38.0 to 38.9 in adult 09/18/2024 Prediabetes 12/30/2022 Vitamin D deficiency 12/29/2022 Hyperparathyroidism (CMS/HCC V24) 01/29/2019 Migraine with aura and witho ut status migrainosus, not intractable 01/18/2018 Overview (09/18/2024): Follows with neurology of [facility] Severe obesity (BMI 35.0-39. 9) with comorbidity (CMS/HCC V24, CMS/HCC V28) 01/18/2018 Granulomatosis with polyangiitis (CMS/HCC V24, C MS/HCC V28) 12/25/2013 Overview (09/18/2024): Dr. Acharya ([facility]; 02/09/23) Encounters Date Type Department Care Team Description 05/07/2025 10:30 AM EDT Office Visit Adult Medicine [address] [phone] Deedee Cerrato MD Cellulitis of right lower extremity (Primary Dx) 05/06/2025 Telephone Adult Medicine [address] [phone] Deedee Cerrato MD from Last 3 Months Immunizations Immunization Administration Dates Next Due Influenza trivalent, 0.5mL, [...] intractable; COMMENT: Follows with neurology of [facility] Granulomatosis with polyangi itis ([facility]/HCC V24, [facility]/HCC V28) 01/18/2018 DX:Granulomatosis with poly angiitis (HCC); COMMENT: GPA is a necrotizing vasculitis predominantly involving small to medium sized vessels. It typically produces granulomatous inflammation of the of the upper and lower respiratory tracts as well necrotizing pauci-immune glomerulonephritis. 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 For example, exceptional children teacher assistant or elderly care for an older [...] Date Recorded What is your living situation? Unrecognized valu e 01/05/2025 Comments No Sex and Gender Information [...] 3:00 PM EDT Office Visit Adult Medicine [address] [phone] Deedee Cerrato MD [address] [place] [address] Health Maintenance Due Date Last Done Comments Hepatitis B Vaccines (1 of 3 - 19+ 3-dose series) 1986 RSV Immunization Adult Patients (1 - Risk 50-74 years 1-dose series) 2017 HIV Screening 08/05/2022 COVID-19 Vaccine (3 - [...] Health Maintenance Results * Lipid panel (08/25/2022) Pathologist [facility] LDL/HDL Ratio 3 0 - 4 Triglycerides 127 0 - 150 mg/dL Cholesterol 188 0 - 200 mg/dL HDL 72 >=40 mg/dL LDL Cholesterol 91 0 - 100 mg/dL Blood Venous blood specimen / Unknown us Historical Provider LAB BLOOD ORDERABLES Marixa l Result * Hepatitis C Screening (06/02/2022) Pathologist [facility] Hepatitis C Screening Abstracted us Historical Provider HEALTH MAINTENANCE Final Result * Cervical Cancer Screening: HPV (09/17/2021) Pathologist [facility] Cervical Cancer Screening: HPV negative, abstracted us Historical Provider HEALTH MAINTENANCE Final Result from Last 3 Months or Most Recently Relevant to Health Maintenance Insurance Care Teams Yarn Examiner Relationship Specialty Start Date End Date Deedee Cerrato MD [address] [place] [phone] PCP - General Internal Medicine 05/16/22
[2025-07-25 16:13] LABS: Alanine Aminotransferase 20 U/L (0-31); Albumin Level 4.3 g/dL (3.5-5.0); Alkaline Phosphatase 103 U/L (39-117); Anion Gap 12 (12-20); Aspartate Amino Transferase 19 U/L (5-31); Blood Urea Nitrogen 13 mg/dL (9-16); Calcium 9.3 mg/dL (8.4-10.2); Carbon Dioxide 26 mmol/L (22-29); Chloride 105 mmol/L (96-108); Estimated Glomerular Filt Rate > 60; Potassium 4.1 mmol/L (3.3-5.1); Sodium 139 mmol/L (135-145); Total Protein 7.9 g/dL (6.5-8.0)
[2025-07-28 15:58] LABS: Proteinase 3 PR3 Antibodies <1.0 AI
== END 2025-07-25 12:43 | disposition home or self-care (01) ==
LOC: HO.10HDL 12:42
PROVIDERS: Visit Provider Student in an Organized Health Care Education/Training Program
DX: I77.6 Arteritis, unspecified (principal)
CPT/HCPCS: 36415; 80053; 82784; 85025; 85652; 86021; 86140

== ENCOUNTER 2025-07-30 14:43 | Outpatient (AMB) | payer BC, SELFPAY ==
[2025-07-30 14:44] VITALS: BP 130/82; PULSE 97; O2SAT 99; BMI 37.7
--- NOTE | 2025-07-30 14:44 | A.OFFVIS_ITS ---
Vital Signs 07/30/25 14:44 Height 5 ft 6 in Weight 233 lb 7.512 oz BMI 37.7 BP 130/82 Blood Pressure Location Lt brachial Position Sitting Pulse 97 Pulse Source Pulse Oximeter Pulse Oximetry (%) 99 Oxygen Delivery Method Room Air Intake Visit Reasons: follow up Intake Note: Patient presents for follow up on osteoarthritis of both knees. 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 (inflammatory arthritis, skin rashes, saddle nose deformity, sinusitis) Received rituximab in 2012 in 2013 which put her in remission then lost to follow-up flare in 2022 inflammatory arthritis and skin rash (RTX 1 g X2 doses 03/31) effective, flare 01/2024 (1g Ritux effective) maintenance dose 0.5 g 07/2024 Initial history: This is a 57-year-old female with past medical history of vasculitis who presents for evaluation of vasculitis. Patient stated that she started having multiple joint pains as well as itchy skin rashes back in 2008. The skin rash was biopsied and per patient it was inconclusive. She was evaluated by a stopping builder Dr. Alan and was started on methotrexate without much improvement. Her skin rashes and joint pains got worse she was ultimately evaluated by stopping builder Dr. Adams in [place]. She had a repeat skin biopsy which was consistent with vasculitis. She also had a saddle nose. She was diagnosed with MPO positive vasculitis and started on rituximab treatment X 2 doses. She had a couple rounds of rituximab and felt great on it. 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 She had been in remission until December of 2022 when she developed petechial rashes on her extremities as well as joint pain and stiffness of her knees and ankles. She was prescribed a prednisone taper starting at 60 mg taper down to 20 mg in 1 week by her PCP with resolution of her symptoms. Patient also states that she has a hole in the roof of her mouth which is not particularly symptomatic. Current Rheumatology Medication(s): Rituxumab 500mg IV every 6 months [facility] Medical History Respiratory symptoms Vasculitis Prediabetes Surgical History [place] teeth extracted Family History Father Bladder cancer Diabetes HTN (hypertension) Myocardial infarct Mother Amyloidosis Social History Alcohol intake: current Alcohol intake frequency: holidays/special occasions only Patient Tobacco Use Status: Former Tobacco user e-Cigarette/Vaping Use: Never Used Current occupational status: employed Review of Systems Narrative Review of Systems Constitutional: Denies fever, chills, weight loss ENT: Denies vision changes, eye pain or eye redness, dental caries, dry mouth GI: Denies nausea, vomiting, diarrhea, abdominal pain, change in BM Pulm: Denies SOB, OROPEZA, hemoptysis, wheezing Cards: Denies chest pain, palpitations Skin: Denies Raynaud's, rash, nail changes, photosensitivity, PROCESS ANALYST: Denies headaches, weakness, paresthesias, recurrent falls MSK: as per HPI All other systems reviewed and are unremarkable except noted above Physical Exam Exam Exam: Vital signs reviewed Physical Examination CONSTITUITIONAL Patient alert and cooperative. Well appearing and in no apparent painful distress HEENT Conjunctiva and sclera clear. No lymphadenopathy. Saddle nose deformity MSK Hands * Right Hand: Able to make a fist. No swelling or tenderness to palpation of the MCPs, PIPs or DIPs. * Left Hand: Able to make a fist. No swelling or tenderness to palpation of the MCPs, PIPs or DIPs. Wrists * Right Wrist: Full ROM to flexion and extension. No swelling or TTP * Left Wrist: Full ROM to flexion and extension. No swelling or TTP Elbows * Right Elbow: Full ROM. No swelling or TTP. No TTP of the medial epicondyle. No TTP of the lateral epicondyle * Left Elbow: Full ROM. No swelling or TTP. No TTP of the medial epicondyle. No TTP of the lateral epicondyle Shoulders * Right shoulder: Full ROM. No swelling noted. No TTP of the AC joint. No TTP of the subacromial bursa. No TTP of the posterior shoulder * Left shoulder: Full ROM. No swelling noted. No TTP of the AC joint. No TTP of the subacromial bursa. No TTP of the posterior shoulder Knees * Right knee: No swelling noted. No TTP of the knee joint line. No TTP of pes anserine bursa * Left knee: Mild swelling and warmth. No TTP of the knee joint line. No TTP of pes anserine bursa. * Crepitations felt bilaterally Ankles * Right ankle: Good ankle dorsiflexion and plantar flexion. No swelling. No TTP of the ankle joint * Left ankle: Good ankle dorsiflexion and plantar flexion. No swelling. No TTP of the ankle joint Feet * Right foot: Negative squeeze test * Left foot: Negative squeeze test Tender points? * No tenderness to palpation of the bilateral trapezius, supraspinatus, anterior costochondral junctions, bilateral suboccipital muscle insertions SKIN No rashes Vital Signs: Last Vital Signs Pulse 97 07/30/25 14:44 BP 130/82 07/30/25 14:44 Pulse Ox 99 07/30/25 14:44 Oxygen Delivery Method Room Air 07/30/25 14:44 BMI result Body Mass Index 37.7 Results Reviewed Results Reviewed: Laboratory Tests 04/21/25 07/25/25 12:35 12:50 WBC 8.1 RBC 4.61 Hgb 14.1 Hct 42.7 Plt Count 297 ESR 19 22 H Sodium 139 Potassium 4.1 Chloride 105 Carbon Dioxide 26 BUN 13 Creatinine 0.64 AST 19 ALT 20 C-Reactive Protein 0.92 H 0.61 H Laboratory Tests 01/22/25 04/21/25 07/25/25 08:00 12:35 12:50 Proteinase 3 (PR3) Ab <1.0 <1.0 <1.0 Myeloperoxidase Ab 5.7 H 7.0 H 6.1 H Assessment & Plan Assessment & Plan (1) Vasculitis: Comment: Symptoms started in 2008, was started on methotrexate, ineffective dx 2012 P-ANCA GPA. 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 Currently in remission with no rashes, inflammatory joint pain and worsening sinus issues. MPO stable No clinical worsening Plan - Continue rituxumab maintenance dose 500mg IV every 6 months - RTC 4 months - Labs before visit: CBC, CMP, ESR, CRP, ANCA titres, UA, UPC (2) Bilateral primary osteoarthritis of knee: Code(s): M17.0 - Bilateral primary osteoarthritis of knee Category: Medical Plan: #Bilateral Knee OA Last steroid injection 06/2025 left knee slightly warm with edema today Efficacy of the steroid injection is waning Will pursue gel injections at next visit (3) Encounter for monitoring rituximab therapy: Code(s): Z51.81 - Encounter for therapeutic drug level monitoring; Z79.620 - termite control technician (current) use of immunosuppressive biologic Plan: #Long-term Use of Rituxumab Discussed with this patient the risks and benefits of rituximab use to the management of the rheumatic condition Benefits include improved disease control and maintenance of remission Risks include hypogammaglobulinemia and increased risk of opportunistic infections, reactivation of hepatitis-B, infusion reactions Monitoring: ?Immunoglobulins, hepatitis-B serologies, CBC Plan I spent 30 minutes reviewing the record and labs, taking a history, examining the patient, discussing the treatment plan, ordering diagnostic work up and documenting in the medical record Coding Level of Care Code Est Pt Level 4 (77006) Complex EM visit Add On G2211 Diagnoses Vasculitis I77.6 Bilateral primary osteoarthritis of knee M17.0 Encounter for monitoring rituximab therapy Z51.81; Z79.620
--- OUTSIDE RECORDS SUMMARY | 2025-07-30 20:52 | XMS_ITS | Clinical Summary ---
Author Organization [facility] Address [address] [address] Phone Care Team Providers Care Nonprofit Financial Controller Name Role Phone Deedee Cerrato MD Primary [...] Medical Devices Not on file [place] [address] [place] [address] [employer] [place] [address] [place] [address] [employer] [place] [address] [place] [address] [employer] P[employer] Care Teams Nonprofit Financial Controller Relationship Specialty Start Date End Date Deedee Cerrato MD [address] [place] [id number] PCP - General Unknown Provider Specialty 08/31/22 Additional Source Comments The information contained in this document represents components of the legal health record. It is not the complete legal health record.[facility]
--- OUTSIDE RECORDS SUMMARY | 2025-07-30 20:52 | XMS_ITS | Clinical Summary ---
Author Organization [facility] Address [address] [place] [address] Care Team Providers Care Medical Reception Specialist Name Role Phone Deedee Cerrato MD Primary [...] 01/18/2018 Overview (09/18/2024): Follows with neurology of [facility] Severe obesity (BMI 35.0-39. 9) with comorbidity (CMS/HCC V24, CMS/HCC V28) 01/18/2018 Granulomatosis with polyangiitis (CMS/HCC V24, C MS/HCC V28) 12/25/2013 Overview (09/18/2024): Dr. Acharya ([facility] [place] Rheum; 02/09/23) Encounters Date Type Department Care Team Description 05/07/2025 10:30 AM EDT Office Visit Adult Medicine [address] [phone] Deedee Cerrato MD Cellulitis of right lower extremity (Primary Dx) 05/06/2025 Telephone Adult Medicine [address] [phone] Deedee Cerrato MD from Last 3 Months [...] not intractable; COMMENT: Follows with neurology of [facility] Granulomatosis with polyangi itis ([facility]/HCC V24, [facility]/HCC V28) 01/18/2018 DX:Granulomatosis with poly angiitis (HCC); COMMENT: GPA is a necrotizing vasculitis predominantly involving small to medium sized vessels. It typically produces granulomatous inflammation of the of the upper and lower respiratory tracts as well necrotizing pauci-immune glomerulonephritis. Patient previously following with inpatient nursing aide in [place] but reports that she's been classified as [...] for your loved ones. For example, child neurologist or elderly care for an older adult? [...] 3:00 PM EDT Office Visit Adult Medicine [address] [phone] Deedee Cerrato MD [address] [place] [address] Health Maintenance Due Date Last Done Comments [...] Maintenance Results * Lipid panel (08/25/2022) Pathologist [facility] LDL/HDL Ratio 3 0 - 4 Triglycerides 127 0 - 150 mg/dL Cholesterol 188 0 - 200 mg/dL HDL 72 >=40 mg/dL LDL Cholesterol 91 0 - 100 mg/dL Blood Venous blood specimen / Unknown us Historical Provider LAB BLOOD ORDERABLES Marixa l Result * Hepatitis C Screening (06/02/2022) Pathologist [facility] Hepatitis C Screening Abstracted us Historical Provider HEALTH MAINTENANCE Final Result * Cervical Cancer Screening: HPV (09/17/2021) Pathologist [facility] Cervical Cancer Screening: HPV negative, abstracted us Historical Provider HEALTH MAINTENANCE Final Result from Last 3 Months or Most Recently Relevant to Health Maintenance Insurance Care Teams Medical Reception Specialist Relationship Specialty Start Date End Date Deedee Cerrato MD [address] [place] [phone] PCP - General Internal Medicine 05/16/22
== END 2025-07-30 15:57 | disposition home or self-care (01) ==
LOC: HO.RHES 14:43
PROVIDERS: PCP Internal Medicine; Visit Provider Student in an Organized Health Care Education/Training Program
DX: I77.6 Arteritis, unspecified (principal); M17.0 Bilateral primary osteoarthritis of knee; Z51.81 Encounter for therapeutic drug level monitoring; Z79.620 Long term (current) use of immunosuppressive biologic
CPT/HCPCS: 99214

== ENCOUNTER 2025-08-12 14:36 | Outpatient (AMB) | payer BC, SELFPAY ==
--- NOTE | 2025-08-12 15:19 | A.OFFVIS_ITS ---
Vital Signs 08/12/25 15:23 Height 5 ft 6 in Weight 234 lb 5.622 oz BMI 37.8 BP 142/100 H Blood Pressure Location Lt brachial Position Sitting Pulse 89 Pulse Source Pulse Oximeter Pulse Oximetry (%) 96 Oxygen Delivery Method Room Air Intake Visit Reasons: knee pain/gel injection Intake Note: Patient presents for knee pain and Gel-injection follow up. 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 (inflammatory arthritis, skin rashes, saddle nose deformity, sinusitis) Received rituximab in 2012 in 2013 which put her in remission then lost to follow-up flare in 2022 inflammatory arthritis and skin rash (RTX 1 g X2 doses 03/31) effective, flare 01/2024 (1g Ritux effective) maintenance dose 0.5 g 07/2024 Initial history: This is a 57-year-old female with past medical history of vasculitis who presents for evaluation of vasculitis. Patient stated that she started having multiple joint pains as well as itchy skin rashes back in 2008. The skin rash was biopsied and per patient it was inconclusive. She was evaluated by a hand compositor Dr. Alan and was started on methotrexate without much improvement. Her skin rashes and joint pains got worse she was ultimately evaluated by hand compositor Dr. Adams in [place]. She had a repeat skin biopsy which was consistent with vasculitis. She also had a saddle nose. She was diagnosed with MPO positive vasculitis and started on rituximab treatment X 2 doses. She had a couple rounds of rituximab and felt great on it. 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 She had been in remission until December of 2022 when she developed petechial rashes on her extremities as well as joint pain and stiffness of her knees and ankles. She was prescribed a prednisone taper starting at 60 mg taper down to 20 mg in 1 week by her PCP with resolution of her symptoms. Patient also states that she has a hole in the roof of her mouth which is not particularly symptomatic. Current Rheumatology Medication(s): Rituxumab 500mg IV every 6 months [facility] Medical History Respiratory symptoms Vasculitis Prediabetes Surgical History [place] teeth extracted Family History Father Bladder cancer Diabetes HTN (hypertension) Myocardial infarct Mother Amyloidosis Social History Alcohol intake: current Alcohol intake frequency: holidays/special occasions only Patient Tobacco Use Status: Former Tobacco user e-Cigarette/Vaping Use: Never Used Current occupational status: employed Review of Systems Narrative Review of Systems Constitutional: Denies fever, chills, weight loss ENT: Denies vision changes, eye pain or eye redness, dental caries, dry mouth GI: Denies nausea, vomiting, diarrhea, abdominal pain, change in BM Pulm: Denies SOB, OROPEZA, hemoptysis, wheezing Cards: Denies chest pain, palpitations Skin: Denies Raynaud's, rash, nail changes, photosensitivity, SENIOR OFFICE ASSISTANT: Denies headaches, weakness, paresthesias, recurrent falls MSK: as per HPI All other systems reviewed and are unremarkable except noted above Physical Exam Exam Exam: Vital signs reviewed Physical Examination CONSTITUITIONAL Patient alert and cooperative. Well appearing and in no apparent painful distress HEENT Conjunctiva and sclera clear. No lymphadenopathy. Saddle nose deformity MSK Hands * Right Hand: Able to make a fist. No swelling or tenderness to palpation of the MCPs, PIPs or DIPs. * Left Hand: Able to make a fist. No swelling or tenderness to palpation of the MCPs, PIPs or DIPs. Wrists * Right Wrist: Full ROM to flexion and extension. No swelling or TTP * Left Wrist: Full ROM to flexion and extension. No swelling or TTP Elbows * Right Elbow: Full ROM. No swelling or TTP. No TTP of the medial epicondyle. No TTP of the lateral epicondyle * Left Elbow: Full ROM. No swelling or TTP. No TTP of the medial epicondyle. No TTP of the lateral epicondyle Shoulders * Right shoulder: Full ROM. No swelling noted. No TTP of the AC joint. No TTP of the subacromial bursa. No TTP of the posterior shoulder * Left shoulder: Full ROM. No swelling noted. No TTP of the AC joint. No TTP of the subacromial bursa. No TTP of the posterior shoulder Knees * Right knee: No swelling noted. No TTP of the knee joint line. No TTP of pes anserine bursa * Left knee: Mild swelling and warmth. No TTP of the knee joint line. No TTP of pes anserine bursa. * Crepitations felt bilaterally Ankles * Right ankle: Good ankle dorsiflexion and plantar flexion. No swelling. No TTP of the ankle joint * Left ankle: Good ankle dorsiflexion and plantar flexion. No swelling. No TTP of the ankle joint Feet * Right foot: Negative squeeze test * Left foot: Negative squeeze test Tender points? * No tenderness to palpation of the bilateral trapezius, supraspinatus, anterior costochondral junctions, bilateral suboccipital muscle insertions SKIN No rashes Vital Signs: Last Vital Signs Pulse 89 08/12/25 15:23 BP 142/100 H 08/12/25 15:23 Pulse Ox 96 08/12/25 15:23 Oxygen Delivery Method Room Air 08/12/25 15:23 BMI result Body Mass Index 37.8 Office Procedures AMB Joint Injection/Aspiration Joint Injection/Aspiration Details: Procedure was explained to the patient and informed consent was obtained. ? Risks associated with the procedure were discussed with the patient including but not limited to bleeding, infection, drug reactions and reactions to the topical anesthetic. Patient made aware of signs to look out for infectious complications. The area of interest was identified and confirmed with patient. ?This was subsequently cleaned with chlorhexidine x 2. ? The area was then anesthetized using ethyl chloride spray. 3cc Gel one was injected without issue. ?Minimal to no bleeding. ?Patient tolerated procedure. Primary Site: right knee Prep: site was prepped using aseptic technique and ethochloride spray was applied Injected: in the joint Approach Used: anterior Procedure: The patient tolerated the procedure well Coding 22444 - Large joint Procedure code (CPT) selection complete AMB Joint Injection/Aspiration Joint Injection/Aspiration Details: Procedure was explained to the patient and informed consent was obtained. ? Risks associated with the procedure were discussed with the patient including but not limited to bleeding, infection, drug reactions and reactions to the topical anesthetic. Patient made aware of signs to look out for infectious complications. The area of interest was identified and confirmed with patient. ?This was subsequently cleaned with chlorhexidine x 2. ? The area was then anesthetized using ethyl chloride spray. 3cc gel one was injected without issue. ?Minimal to no bleeding. ?Patient tolerated procedure. Primary Site: left knee Prep: site was prepped using aseptic technique and ethochloride spray was applied Injected: in the joint Approach Used: anterior Procedure: The patient tolerated the procedure well Coding 90228 - Large joint Procedure code (CPT) selection complete Office Meds Gel-One 30 mg/3 mL intra-articular syringe Performing Provider: Priya Carr MD Performing Location: [facility] Administered by: Dora Singh RN on 08/12/25 15:57 Dose Route Admin Location Dispensed Lot Number Expiration Date [facility] [employer] 30 mg intra-articular RIGHT KNEE 3 mL [id number] 03/02/27 60066-10260 [employer] Total Dispensed Waste 3 mL 0 % Gel-One 30 mg/3 mL intra-articular syringe Performing Provider: Priya Carr MD Performing Location: [facility] Administered by: Dora Singh RN on 08/12/25 15:57 Dose Route Admin Location Dispensed Lot Number Expiration Date [facility] [employer] 30 mg intra-articular LEFT KNEE 3 mL [id number] 03/02/27 41403-96857 [employer] Total Dispensed Waste 3 mL 0 % Results Reviewed Results Reviewed: Laboratory Tests 04/21/25 07/25/25 12:35 12:50 WBC 8.1 RBC 4.61 Hgb 14.1 Hct 42.7 Plt Count 297 ESR 19 22 H Sodium 139 Potassium 4.1 Chloride 105 Carbon Dioxide 26 BUN 13 Creatinine 0.64 AST 19 ALT 20 C-Reactive Protein 0.92 H 0.61 H Laboratory Tests 01/22/25 04/21/25 07/25/25 08:00 12:35 12:50 Proteinase 3 (PR3) Ab <1.0 <1.0 <1.0 Myeloperoxidase Ab 5.7 H 7.0 H 6.1 H XR Bilateral Knee 03/2024 FINDINGS: Right knee: There is marked joint space narrowing of the medial joint compartment. Marginal osteophytes involve the medial and lateral joint compartment. There is moderate genu varus. Left knee: There is marked narrowing of the medial joint compartment with marginal osteophytes involving the medial and lateral joint compartments. There is moderate degenerative varus. IMPRESSION: Bilateral marked osteoarthritis involving the medial joint compartments. Assessment & Plan Assessment & Plan (1) Bilateral primary osteoarthritis of knee: Code(s): M17.0 - Bilateral primary osteoarthritis of knee Category: Medical Plan: #Bilateral Knee OA s/p gel One injections Plan - RTC 5 months Plan I spent 20 minutes reviewing the record and labs, taking a history, examining the patient, documenting in the medical record Orders: Orders AMB Joint Injection/Aspiration 08/12/25 M17.0 - Bilateral primary osteoarthritis of knee AMB Joint Injection/Aspiration 08/12/25 M17.0 - Bilateral primary osteoarthritis of knee Coding Level of Care Code Est Pt Level 3 (83237) Diagnoses Bilateral primary osteoarthritis of knee M17.0 CPT Codes Coding - 35701 Large joint: 85001 - Large joint ([id number]) Coding - 84232 Large joint: 16211 - Large joint ([id number])
[2025-08-12 15:23] VITALS: BP 142/100; PULSE 89; O2SAT 96; BMI 37.8
--- OUTSIDE RECORDS SUMMARY | 2025-08-12 17:41 | XMS_ITS | Clinical Summary ---
Author Organization [facility] Address [address] [address] Phone Care Team Providers Care Certified Pedorthotist Name Role Phone Deedee Copeland MD Primary Care Prov ider Allergies No [...] Medical Devices Not on file Insurance PPO [employer] PPO [employer] [place] [address] [place] [address] [employer] [address] [address] [place] [address] [employer] PPO [employer] PPO [place] [employer] PPO [employer] PPO [employer] PPO Care Teams Certified Pedorthotist Relationship Specialty Start Date End Date Deedee Copeland MD [address] [place] [phone] PCP - General Unknown Provider Specialty 08/31/22 Additional Source Comments The information contained in this document represents components of the legal health record. It is not the complete legal health record.[facility]
--- OUTSIDE RECORDS SUMMARY | 2025-08-12 17:41 | XMS_ITS | Clinical Summary ---
Author Organization Patient Business Ser [facility] Address [address] [place] [address] Care Team Providers Care Blacktop Paver Operator Name Role Phone Deedee Cerraot MD Primary Care Prov ider Allergies No known active allergies Medications SUMAtriptan (IMITREX) 50 mg tablet TAKE 1 TAB AT ONSET OF MIGRAINE MAY REPEAT DOSE ONCE AFTER 2 HRS IF NEEDED. MAX 2 TABS/24HRS 9 tablet 2 07/01/2025 Active Active Problems Problem Noted Date Diagnosed Date Class 2 obesity due to exces s calories without serious comorbidity with body mass index (BMI) of 38.0 to 38.9 in adult 09/18/2024 Prediabetes 12/30/2022 Vitamin D deficiency 12/29/2022 Hyperparathyroidism ([facility] V24) 01/29/2019 Migraine with aura and witho ut status migrainosus, not intractable 01/18/2018 Overview (09/18/2024): Follows with neurology of [facility] Severe obesity (BMI 35.0-39. 9) with comorbidity ([facility]/HCC V24, [facility] V28) 01/18/2018 Granulomatosis with polyangiitis ([facility] V24, [facility] V28) 12/25/2013 Overview (09/18/2024): [place]. 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 It typically produces granulomatous inflammation of the of the upper and lower respiratory tracts as well necrotizing pauci-immune glomerulonephritis. Patient previously following with personnel counselor in [place] but reports that she's been classified as [...] care for your loved ones. For example, director child development center or elderly care for an older adult? [...] Visit Adult Medicine [facility] [address] [place] [address] Deedee Cerrato MD [address] [place] [address] Health Maintenance Due Date Last Done Comments [...] Maintenance Results * Lipid panel (08/25/2022) Pathologist [facility] LDL/HDL Ratio 3 0 - 4 Triglycerides 127 0 - 150 mg/dL Cholesterol 188 0 - 200 mg/dL HDL 72 >=40 mg/dL LDL Cholesterol 91 0 - 100 mg/dL Blood Venous blood specimen / Unknown [facility] Provider LAB BLOOD ORDERABLES Marixa l Result * Hepatitis C Screening (06/02/2022) Pathologist [facility] Hepatitis C Screening Abstracted [facility] Provider HEALTH MAINTENANCE Final Result * Cervical Cancer Screening: HPV (09/17/2021) Pathologist [facility] Cervical Cancer Screening: HPV negative, abstracted [facility] Provider HEALTH MAINTENANCE Final Result from Last 3 Months or Most Recently Relevant to Health Maintenance Insurance Care Teams Blacktop Paver Operator Relationship Specialty Start Date End Date Deedee Cerrato MD [address] [place] [phone] PCP - General Internal Medicine 05/16/22
== END 2025-08-12 15:55 | disposition home or self-care (01) ==
LOC: HO.RHES 14:37
PROVIDERS: PCP Internal Medicine; Visit Provider Student in an Organized Health Care Education/Training Program
DX: M17.0 Bilateral primary osteoarthritis of knee (principal)
CPT/HCPCS: 20610

== ENCOUNTER → 2025-08-12 14:36 | Outpatient (BNVA) | payer BC, SELFPAY | PROVIDERS: PCP Internal Medicine; Visit Provider Student in an Organized Health Care Education/Training Program | DX: M17.0 Bilateral primary osteoarthritis of knee (principal) | CPT/HCPCS: 20610; J7326 ==